=== PATIENT | female | born 1940 | race Caucasian/White ===

== ENCOUNTER 2017-12-01 11:34 | Observation (INO) ==
--- NOTE | 2017-12-01 11:53 | Emergency Department Note ---
Disposition Clinical Impression: TIA (transient ischemic attack) Qualifiers: Transient cerebral ischemia type: unspecified Qualified Code(s): G45.9 - Transient cerebral ischemic attack, unspecified Disposition: Admitted As Inpatient Condition: Fair Referrals: Andrade Ulrich MD [Primary Care Provider] - Forms: ED Satisfaction Letter, Work/School Release Time of Disposition: 14:45 Neuro HPI - General Chief Complaint: ED General Medical Stated Complaint: Low blood pressure Time Seen by Provider: 12/01/17 11:43 Source: patient, family, EMS Limitations: no limitations Nursing Notes Reviewed: Yes Vital Signs Reviewed: Yes - History of Present Illness HPI Narrative: 77-year-old female who states she had acute vision loss 3 days ago. The vision has improved some now is just blurry. Says she generally does not feel well. She complains of chronic bilateral leg pain due to neuropathy. She also complains of lower abdominal pain. Onset of Symptoms Date: 11/28/17 Onset of Symptoms Time: 08:00 Symptom Onset Unknown: No Timing confirmed by: spouse Location: other (Vision) History of same: No Severity: severe Quality: other (Acute bilateral vision loss) Symptoms Improving: Yes Improves with: time Context: sudden onset On Anticoagulants: No Associated symptoms: Reports: malaise Treatments Prior to Arrival: none - Related Data Home Medications: Home Medications Medication Instructions Recorded Confirmed Albuterol Sulfate [Proair 1 puff IH Q6H PRN 09/26/15 11/12/17 Respiclick] Aspirin [Adult Low Dose Aspirin EC] 81 mg PO HS 09/26/15 11/12/17 Bisacodyl [Dulcolax] 10 mg RC DAILY PRN 09/26/15 11/12/17 Carvedilol 3.125 mg PO Q12H 09/26/15 11/12/17 Donepezil [Aricept] 5 mg PO HS 09/26/15 11/12/17 Gabapentin [Neurontin] 300 mg PO Q8H 09/26/15 11/12/17 Levothyroxine [Synthroid] 175 mcg PO 0600 09/26/15 11/12/17 Lisinopril 2.5 mg PO QAM 09/26/15 11/12/17 Polyethylene Glycol 3350 [MiraLAX] 17 gm PO HS 09/26/15 11/12/17 Sennosides [Senna] 8.6 mg PO BID PRN 09/26/15 11/12/17 rOPINIRole [Requip] 1 mg PO HS 09/26/15 11/12/17 GuaiFENesin/Dextromethorphan 10 ml PO Q4H PRN 04/21/16 11/12/17 [Robitussin/Dm] Ondansetron HCl [Zofran] 4 mg PO Q4H PRN 04/21/16 11/12/17 Carbidopa/Levodopa [Carbidopa-Levo 1 each PO Q12H 06/02/16 11/12/17 ER 25-100 Tab] Cyanocobalamin (Vitamin B-12) 1,000 mcg PO DAILY 06/02/16 11/12/17 [Vitamin B12] Docusate [Colace] 100 mg PO BID 06/02/16 11/12/17 Ipratropium/Albuterol Neb [Duoneb] 3 ml IH Q4H PRN 06/02/16 11/12/17 Oxygen 3 l NS AD 06/02/16 11/12/17 Acetaminophen [Tylenol] 500 mg PO Q6HR PRN 11/12/17 11/12/17 Albuterol Neb [Proventil Neb] 2.5 mg IH Q4HR 11/12/17 11/12/17 Budesonide/Formoterol 160/4.5 1 puff IH BIDR 11/12/17 11/12/17 [Symbicort 160/4.5] Buspirone HCl [Buspar] 10 mg PO BID 11/12/17 11/12/17 Lubiprostone [Amitiza] 24 mcg PO DAILY 11/12/17 11/12/17 MOM Conc [Milk of Magnesia Conc] 30 ml PO DAILY PRN 11/12/17 11/12/17 Melatonin/Pyridoxine HCl (B6) 1 tab PO HS PRN 11/12/17 11/12/17 [Melatonin 5 mg Tablet] Nitroglycerin [Nitrostat] 0.4 mg SL Q5M PRN 11/12/17 11/12/17 OxyCODONE Immed Rel [Roxicodone 10 10 mg PO QID PRN 11/12/17 11/12/17 MG] Promethazine HCl 12.5 mg PO Q6H PRN 11/12/17 11/12/17 Previous Rx's Medication Instructions Recorded Cholecalciferol (D-3) [Vitamin D] 1,000 unit PO QAM tablet 04/24/16 Ferrous Sulfate 325 mg PO TIDWM tablet 04/24/16 Folic Acid 1 mg PO DAILY tablet 04/24/16 ALPRAZolam [Xanax 0.5 MG Tablet] 0.5 mg PO BID #20 tablet 06/02/16 Allergies/Adverse Reactions: Allergies Allergy/AdvReac Type Severity Reaction Status Date / Time Erythromycin Base Allergy Unknown See Verified 04/21/16 14:16 Comments morphine Allergy Unknown See Verified 04/21/16 14:16 Comments Sulfa (Sulfonamide AdvReac Unknown Nausea Verified 04/21/16 14:16 Antibiotics) All systems ED: reviewed and negative except as stated. Constitutional: Denies: fever, chills, weakness, weight change Eyes: Reports: vision change (Acute vision loss 3 days ago). Denies: eye pain, eye discharge ENT ED: Denies: ear pain, throat pain, dental pain, hearing loss, epistaxis, congestion, dysphagia Cardiovascular: Denies: chest pain, palpitations, dyspnea on exertion, edema, syncope Respiratory: Denies: cough, dyspnea, wheezes, hemoptysis, stridor Gastrointestinal: Reports: abdominal pain. Denies: nausea, vomiting, diarrhea, constipation, hematemesis, melena, hematochezia Genitourinary: Denies: dysuria, frequency, hematuria, discharge Musculoskeletal: Reports: myalgia. Denies: back pain, neck pain, arthralgia Integumentary: Denies: rash, abrasion, lesions Neurological: Denies: headache, weakness, numbness, paresthesias, confusion, abnormal gait, vertigo Psychiatric: Denies: anxiety, depression, suicidal thoughts, homicidal thoughts , auditory hallucinations, visual hallucinations Endocrine: Denies: fatigue Hematological/Lymphatic: Denies: easy bleeding, easy bruising Allergic/Immunologic: Denies: facial swelling, urticaria Past Medical History - Past Medical History Medical history: Reports: arthritis, atrial fibrillation, CHF, COPD, CVA, DVT, dementia, GERD, hypertension, pulmonary embolus, thyroid disease, TIA, other Surgical history: Reports: appendectomy, cholecystectomy, colectomy, hysterectomy, knee replacement, orthopedic, other Psychiatric history: Reports: anxiety, depression [employer] history: Reports: no [employer] history - Social History Smoking Status: Unknown if ever smoked Smokeless Tobacco Status: No Alcohol use: Reports: none Drug use: Reports: none Physical Exam - General Limitations: no limitations General appearance: alert, in no apparent distress - Head Head exam: atraumatic, normocephalic, normal inspection - Eye Eye exam: Present: PERRL, EOMI - ENT ENT exam: normal exam, normal oropharynx, mucous membranes moist - Neck Neck exam: Present: normal inspection, full ROM, trachea midline - Chest Chest inspection: Present: normal inspection, symmetric chest wall rise - Respiratory Respiratory exam: Present: normal lung sounds bilaterally - Cardiovascular Cardiovascular exam: Present: regular rate, normal rhythm, normal heart sounds - Abdominal Exam Abdominal exam: Present: soft, tenderness. Absent: guarding, rebound Abdominal tenderness: Present: diffuse - Extremities Exam Extremities exam: Present: normal inspection, full ROM. Absent: tenderness, pedal edema - Expanded Lower Extremity Exam Neurovascular/Tendon exam: Absent: motor deficit, sensory deficit, tendon deficit Gait: not tested/not observed - Back Exam Back exam: Present: normal inspection, full ROM. Absent: tenderness - Neurological Exam Neurological exam: Present: alert. Absent: motor sensory deficit - Psychiatric Psychiatric exam: Present: normal affect, normal mood - Skin Skin exam: Present: warm, dry, intact, normal color Course - Reevaluation(s) Reevaluation #1: 77-year-old with acute vision loss 3 days ago which seems to have improved. She continues to have some blurred vision however. Does not seem to have a lopez field defect on confrontational ward. She did not will be admitted and further evaluation obtained. Time: 14:21 - Consultations Consultation #1: Discussed with , he requests CTA of the head and neck, admittable see in consult. Time: 14:20 Consultation #2: Discussed with , admit. Time: 14:45 Vital Signs Temperature 97.8 F 12/01/17 11:37 Pulse Rate 114 12/01/17 11:37 Respiratory Rate 18 12/01/17 11:37 Blood Pressure 98/62 12/01/17 11:37 O2 Sat by Pulse Oximetry 100 12/01/17 11:37 Temperature 97.8 F 12/01/17 11:37 Pulse Rate 60 12/01/17 13:21 Respiratory Rate 13 12/01/17 13:21 Blood Pressure 97/49 12/01/17 13:21 O2 Sat by Pulse Oximetry 98 12/01/17 13:21 Oxygen Delivery Oxygen Delivery Nasal Cannula Neuro Symptoms/Deficit - Lab Data Result diagrams: 12/01/17 12:22 12/01/17 12:22 Lab Results 12/01/17 12/01/17 12/01/17 Range/Units 12:22 12:22 12:22 WBC 5.1 (4.3-11.1) K/mcL RBC 4.54 (3.82-4.97) M/mcL Hgb 13.1 (11.5-15.4) g/dL Hct 42.2 (35.3-44.9) % MCV 93.0 (83.0-100.0) fL MCH 28.9 (28.0-33.3) pg MCHC 31.0 L (31.6-35.5) g/dL RDW 13.5 (11.5-14.5) % Plt Count 166 (140-400) K/mcL MPV 11.1 (9.4-12.4) fL Immature Gran % 0.0 (0-4) % Seg Neutrophils % 45.9 % Lymphocytes % 42.8 % Monocytes % 6.8 % Eosinophils % 3.7 % Basophils % 0.8 % Neutrophils # 2.4 (1.6-8.9) K/mcL Lymphocytes # 2.2 (0.6-4.6) K/mcL Monocytes # 0.4 (0.0-1.3) K/mcL Eosinophils # 0.2 (0.0-0.6) K/mcL Basophils # 0.0 (0.0-0.2) K/mcL PT 11.0 (9.4-12.1) Seconds INR 1.0 APTT 31.8 (26.0-36.0) Seconds Sodium 143 (136-145) mEq/L Potassium 4.0 (3.5-5.1) mEq/L Chloride 106 (98-107) mEq/L Carbon Dioxide 32 H (23-29) mEq/L BUN 14 (8-23) mg/dL Creatinine 0.55 L (0.60-1.20) mg/dL Est GFR ( Amer) > 60 (> 60) Est GFR (Non-Af Amer) > 60 (> 60) BUN/Creatinine Ratio 25 (6-26) Glucose 73 (70-105) mg/dL Calculated Osmolality 295 (280-300) Lactic Acid (0.5-2.2) mmol/L Calcium 9.6 (8.6-10.3) mg/dL Troponin I < 0.03 (< 0.04) ng/mL Urine Color (Yellow) Urine Clarity (Clear) Urine pH (5.0-8.0) pH Units Ur Specific [place] (1.010-1.025) Urine Protein (Neg-Trace) mg/dL Urine Glucose (UA) (Normal) mg/dL Urine Ketones (Negative) mg/dL Urine Blood (Negative) Urine Nitrite (Negative) Urine Bilirubin (Negative) Urine Urobilinogen (Normal) mg/dL Ur Leukocyte Esterase (Negative) Urine Microscopic RBC (0-3) per hpf Urine Microscopic WBC (0-3) per hpf Ur Squamous Epith Cells (None-Few) per lpf Urine Bacteria (None-Few) per hpf Ur Culture Indicated? (NO) 12/01/17 12/01/17 Range/Units 12:22 13:15 WBC (4.3-11.1) K/mcL RBC (3.82-4.97) M/mcL Hgb (11.5-15.4) g/dL Hct (35.3-44.9) % MCV (83.0-100.0) fL MCH (28.0-33.3) pg MCHC (31.6-35.5) g/dL RDW (11.5-14.5) % Plt Count (140-400) K/mcL MPV (9.4-12.4) fL Immature Gran % (0-4) % Seg Neutrophils % % Lymphocytes % % Monocytes % % Eosinophils % % Basophils % % Neutrophils # (1.6-8.9) K/mcL Lymphocytes # (0.6-4.6) K/mcL Monocytes # (0.0-1.3) K/mcL Eosinophils # (0.0-0.6) K/mcL Basophils # (0.0-0.2) K/mcL PT (9.4-12.1) Seconds INR APTT (26.0-36.0) Seconds Sodium (136-145) mEq/L Potassium (3.5-5.1) mEq/L Chloride (98-107) mEq/L Carbon Dioxide (23-29) mEq/L BUN (8-23) mg/dL Creatinine (0.60-1.20) mg/dL Est GFR ( Amer) (> 60) Est GFR (Non-Af Amer) (> 60) BUN/Creatinine Ratio (6-26) Glucose (70-105) mg/dL Calculated Osmolality (280-300) Lactic Acid 0.9 (0.5-2.2) mmol/L Calcium (8.6-10.3) mg/dL Troponin I (< 0.04) ng/mL Urine Color Yellow (Yellow) Urine Clarity Cloudy A (Clear) Urine pH 5.5 (5.0-8.0) pH Units Ur Specific [place] 1.029 H (1.010-1.025) Urine Protein Trace (Neg-Trace) mg/dL Urine Glucose (UA) Normal (Normal) mg/dL Urine Ketones Negative (Negative) mg/dL Urine Blood Negative (Negative) Urine Nitrite Negative (Negative) Urine Bilirubin Negative (Negative) Urine Urobilinogen Normal (Normal) mg/dL Ur Leukocyte Esterase Moderate H (Negative) Urine Microscopic RBC 0-3 (0-3) per hpf Urine Microscopic WBC TNTC H (0-3) per hpf Ur Squamous Epith Cells Many H (None-Few) per lpf Urine Bacteria Many H (None-Few) per hpf Ur Culture Indicated? NO. (NO) NIH Stroke Scale - Level of Consciousness LOC: Alert - LOC Questions LOC Questions: Answers both correctly - LOC Commands LOC Commands: Performs both correctly - Best Gaze Best Gaze: Normal - Facial Palsy Facial Palsy: Normal - Motor Arms Motor Arm-Left: No drift for 10 seconds Motor Arm-Right: No drift for 10 seconds - Motor Legs Motor Leg-Left: No drift for 5 seconds Motor Leg-Right: No drift for 5 seconds - Limb Ataxia Limb Ataxia: Normal, No Ataxia - Sensory Sensory: Normal - Best Language Best Language: No aphasia - Extinction and Inattention Extinction and Inattention: Normal TPA Checklist - Eligibilty for IV tPA 1. LKW equal to or less than 4.5 hours be before treatment: No - LKW: 3-4.5 hrs Add. Warnings/Precautions Patient/family understanding: The patient/family members have been counseled and understood the risk, benefit , and alternatives of treatment.
[2017-12-01 12:34] LABS: Basophils % 0.8 %; Eosinophils # 0.2 K/mcL (0.0-0.6); Eosinophils % 3.7 %; Hematocrit 42.2 % (35.3-44.9); Hemoglobin 13.1 g/dL (11.5-15.4); Lymphocytes # 2.2 K/mcL (0.6-4.6); Lymphocytes % 42.8 %; Mean Corpuscular Hemoglobin 28.9 pg (28.0-33.3); Mean Platelet Volume 11.1 fL (9.4-12.4); Monocytes # 0.4 K/mcL (0.0-1.3); Monocytes % 6.8 %; Neutrophils # 2.4 K/mcL (1.6-8.9); Platelet Count 166 K/mcL (140-400); Red Blood Count 4.54 M/mcL (3.82-4.97); Red Cell Distribution Width 13.5 % (11.5-14.5); Segmented Neutrophils % 45.9 %
[2017-12-01 12:53] LABS: Activated Partial Thrombo Time 31.8 Seconds (26.0-36.0)
[2017-12-01 13:00] LABS: BUN/Creatinine Ratio 25 (6-26); Blood Urea Nitrogen 14 mg/dL (8-23); Calcium 9.6 mg/dL (8.6-10.3); Carbon Dioxide 32 mEq/L (23-29); Chloride 106 mEq/L (98-107); Glucose 73 mg/dL (70-105); Osmolality,Calculated 295 (280-300); Sodium 143 mEq/L (136-145); Troponin I < 0.03 ng/mL (< 0.04); eGFR For African Americans > 60 (> 60); eGFR For Non-African Americans > 60 (> 60)
[2017-12-01 13:23] LABS: Bilirubin,Urine Negative (Negative); Blood,Urine Negative (Negative); Clarity,Urine Cloudy (Clear); Color,Urine Yellow (Yellow); Glucose,Urine (UA) Normal (Normal); Ketones,Urine Negative (Negative); Leukocyte Esterase,Urine Moderate (Negative); Nitrite,Urine Negative (Negative); PH,Urine 5.5 pH Units (5.0-8.0); Protein,Urine Trace mg/dL (Neg-Trace); Specific Gravity,Urine 1.029 (1.010-1.025); Urobilinogen,Urine Normal (Normal)
[2017-12-01 13:25] LABS: Bacteria,Urine Many per hpf (None-Few); Squamous Epithelial Cell,Urine Many per lpf (None-Few); WBC,Urine TNTC per hpf (0-3)
[2017-12-01 13:35] LABS: RBC,Urine 0-3 per hpf (0-3)
[2017-12-01] MEDS ORDERED: Isovue-370 500 ML INFUS..BTL IV ONE (14:18)
[2017-12-01] MEDS ORDERED: *HR* Dextrose 50 % in Water (Syg) 50 ML SYRINGE IVP PRN (16:47)
[2017-12-01] MEDS ORDERED: D5% in Water 1,000 ML IVC PRN (16:47)
[2017-12-01] MEDS ORDERED: Dextrose Gel 15 GM/37.5 ML TUBE PO PRN ×2 (16:47)
[2017-12-01] MEDS: Insulin LISPRO 300 UNITS/3 ML VIAL SQ SCH (19:46)
[2017-12-01] MEDS ORDERED: Nitroglycerin 0.4 MG TAB.SUBL SL PRN (20:45)
[2017-12-01] MEDS ORDERED: NON-FORMULARY MEDICATION 1 EACH EACH (Oxygen [Oxygen] 3 L) NS SCH (20:45)
[2017-12-01] MEDS ORDERED: Ondansetron ODT 4 MG TAB.RAPDIS PO PRN (20:45)
[2017-12-01] MEDS ORDERED: PYRIDOXINE HCL PO PRN (20:45)
[2017-12-01] MEDS ORDERED: MELATONIN PO PRN (20:45)
[2017-12-01] MEDS ORDERED: MOM Conc 10 ML UD.LIQ PO PRN (20:45)
[2017-12-01] MEDS ORDERED: Bisacodyl 10 MG RECTAL SUPPOSITORY RC PRN (20:45)
[2017-12-01] MEDS ORDERED: Sennosides 8.6 MG TABLET PO PRN (20:45)
[2017-12-01] MEDS ORDERED: Naloxone 0.4 MG/ML INJ IVP PRN (20:50)
[2017-12-01] MEDS ORDERED: Aspirin Enteric Coated 81 MG Tablet PO SCH (21:00)
--- NOTE | 2017-12-01 23:17 | Internal Med History&Physical ---
Date of Encounter: 12/01/17 Time of Encounter: 23:07 Internal Medicine - H&P: HPI Chief complaint: Blurry vision Admitted From: Long-term Nursing Facility Plans for Post Hospital Care: Transfer Shelter Facility History of present illness: Ms. Gibbons is a 77 year old female Patient is a long-term resident of half-way facility, with past medical history of Parkinson's disease, chronic speech disturbances, hypothyroidism, hyperlipidemia, dysphagia oral phase, obesity, dementia. In addition the EMR, she has medical history of atrial fibrillation and hypertension. The patient seems to have chronic right-sided hemiplegia secondary to prior CVA. She also has dysarthria, therefore history is difficult to obtain. She does report she was brought in from the SNF de to worsening vision. She reports this has been going on for a week. She is mostly bed bound and has chronic dysphagia In the ER, she was worked up for CVA< neurologist consulted who requested a head and NEck CTA which was unremarkable, she was admitted for suspected TIA. The patient denies chest pain, difficulty breathing and new difficulty swallowing, she denies nausea, vomiting or diarrhea, she has no abdominal pain. Workup in the ER was unremarkable past half-way facility paperwork, patient is full code. Last hospitalization was in 2016, there is no comparison for neurologic examination findings which are as documented in the examination section. Past Med Surg Social Fam HX - Past Medical History Medical history: arthritis, atrial fibrillation, CHF, COPD, CVA, DVT, dementia, GERD, hypertension, pulmonary embolus, thyroid disease, TIA, other Psychiatric history: anxiety, depression - Past Surgical History Surgical History: appendectomy, cholecystectomy, colectomy, hysterectomy, knee replacement, orthopedic, other - Social History Smoking Status: Unknown if ever smoked Smokeless Tobacco Status: No Alcohol use: none Drug use: none - Family History Father Living Status: Hx Family Respiratory Disorders: Yes Hx Family Cancer: Yes (Lung CA) Internal Medicine - H&P: Meds Albuterol Sulfate [Proair Respiclick] 1 puff IH Q6H PRN 09/26/15 [History] Aspirin [Adult Low Dose Aspirin EC] 81 mg PO HS 09/26/15 [History] Bisacodyl [Dulcolax] 10 mg RC DAILY PRN 09/26/15 [History] Carvedilol 3.125 mg PO Q12H 09/26/15 [History] Donepezil [Aricept] 5 mg PO HS 09/26/15 [History] Levothyroxine [Synthroid] 175 mcg PO 0600 09/26/15 [History] Lisinopril 2.5 mg PO QAM 09/26/15 [History] Polyethylene Glycol 3350 [MiraLAX] 17 gm PO HS 09/26/15 [History] Sennosides [Senna] 8.6 mg PO BID PRN 09/26/15 [History] rOPINIRole [Requip] 1 mg PO HS 09/26/15 [History] GuaiFENesin/Dextromethorphan [Robitussin/Dm] 10 ml PO Q4H PRN 04/21/16 [History] Ondansetron HCl [Zofran] 4 mg PO Q4H PRN 04/21/16 [History] Cholecalciferol (D-3) [Vitamin D] 1,000 unit PO QAM tablet 04/24/16 [Rx] Ferrous Sulfate 325 mg PO TIDWM tablet 04/24/16 [Rx] Folic Acid 1 mg PO DAILY tablet 04/24/16 [Rx] ALPRAZolam [Xanax 0.5 MG Tablet] 0.5 mg PO BID #20 tablet 06/02/16 [Rx] Carbidopa/Levodopa [Carbidopa-Levo ER 25-100 Tab] 1 each PO Q12H 06/02/16 [ History] Cyanocobalamin (Vitamin B-12) [Vitamin B12] 1,000 mcg PO DAILY 06/02/16 [History ] Docusate [Colace] 100 mg PO BID 06/02/16 [History] Ipratropium/Albuterol Neb [Duoneb] 3 ml IH Q4H PRN 06/02/16 [History] Oxygen 3 l NS AD 06/02/16 [History] Acetaminophen [Tylenol] 500 mg PO Q6HR PRN 11/12/17 [History] Albuterol Neb [Proventil Neb] 2.5 mg IH Q4HR 11/12/17 [History] Budesonide/Formoterol 160/4.5 [Symbicort 160/4.5] 1 puff IH BIDR 11/12/17 [ History] Buspirone HCl [Buspar] 10 mg PO BID 11/12/17 [History] MOM Conc [Milk of Magnesia Conc] 30 ml PO DAILY PRN 11/12/17 [History] Melatonin/Pyridoxine HCl (B6) [Melatonin 5 mg Tablet] 1 tab PO HS PRN 11/12/17 [ History] Nitroglycerin [Nitrostat] 0.4 mg SL Q5M PRN 11/12/17 [History] OxyCODONE Immed Rel [Roxicodone 10 MG] 10 mg PO QID PRN 11/12/17 [History] Promethazine HCl 12.5 mg PO Q6H PRN 11/12/17 [History] Gabapentin [Neurontin] 800 mg PO TID 12/01/17 [History] Linaclotide [Linzess] 290 mcg PO DAILY 12/01/17 [History] Mirtazapine [Remeron] 15 mg PO HS 12/01/17 [History] Omeprazole [PriLOSEC] 40 mg PO DAILY 12/01/17 [History] 3 Allergy/AdvReac Type Severity Reaction Status Date / Time Erythromycin Base Allergy Unknown See Verified 04/21/16 14:16 Comments morphine Allergy Unknown See Verified 04/21/16 14:16 Comments Sulfa (Sulfonamide AdvReac Unknown Nausea Verified 04/21/16 14:16 Antibiotics) All Systems PM: A 10-system review of systems was performed and is negative for pertinent findings except as documented above in the HPI. - Constitutional Constitutional: as per HPI - EENT Eyes: as per HPI Ears: as per HPI Nose, mouth and throat: as per HPI - Cardiovascular Cardiovascular ROS IM: as per HPI - Respiratory Respiratory: as per HPI - Gastrointestinal Gastrointestinal: as per HPI - Genitourinary Genitourinary: as per HPI - Musculoskeletal Musculoskeletal ROS IM: as per HPI - Integumentary Integumentary IM: as per HPI - Neurological Neurological ROS: as per HPI - Hematologic/Lymphatic Hematologic/Lymphatic: as per HPI - Constitutional Vitals: Temp Pulse Resp BP Pulse Ox 97.5 F L 73 17 121/54 98 12/01/17 20:46 12/01/17 20:46 12/01/17 20:46 12/01/17 20:46 12/01/17 20:46 General appearance: Present: A&O X 3, pleasant, no acute distress, obese - Head Head exam: Present: atraumatic, normocephalic - Eye Eye exam: Present: PERRL, conjuntiva pink, sclera anicteric Pupils: Present: PERRL - Neck Neck exam general surgery: Present: supple, trachea midline. Absent: lymphadenopathy - Respiratory Respiratory exam: Present: CTAB. Absent: accessory muscle use, rales, rhonchi, wheezes - Cardiovascular Cardiovascular exam: Present: RRR, +S1, +S2. Absent: diastolic murmur, gallop, rubs, systolic murmur - GI/Abdominal GI/Abdominal exam: Present: normal bowel sounds, soft, no peritoneal signs. Absent: distended, tenderness - Extremities Exam Extremities exam: Present: warm, radial pulses palpable and symmetrical. Absent : calf tenderness, cyanotic, pedal edema - Neurological Exam Additional comments: Alert, awake, oriented 3. Patient with right sided facial droop. Patient is dysarthric. Pupils are equal and reactive bilaterally. Visual ward not tested due to patient's dysarthria. Upper extremities power at least. 3/5 bilaterally. Right lower extremity positive. Left lower extremity power at least 2/5, against gravity NO sensory deficits - Skin Skin exam: Present: dry, intact Internal Med - H&P Results - Labs CBC & Chem 7: 12/01/17 12:22 12/01/17 12:22 - Assessment and plan (1) Blurry vision Current Visit: Yes Status: Acute Assessment and plan: Patient complains of blurry vision that dates back to week prior to presentation. Described as visual field defects Unable to assess visual field on exam due to severe dysarthia Unlikely TIA HEad CT and Head and Neck CTA negative for acute infarct Obtain ECHO neuro eval already requested by ER Continue home meds Consider ophthalmology eval a.m-consult to be called by day team if cleared by neuro fall precautions (2) History of CVA with residual deficit Current Visit: Yes Status: Chronic Assessment and plan: Patient with residual dysarthria, paraparesis, suspect R facial droop too is chronic Patient is mostly bed bound at her SNF Fall precautions Speech therapy prior to feeding as patient failed swallow eval in ER, however, notes from SNF states -"oral phase dysphagia" as one of her diagnoses, keep NPO for now Continue home meds Fall precautions DVT prophylaxis (3) Chronic respiratory failure with hypoxia Current Visit: Yes Status: Chronic Assessment and plan: continue home O2 (4) HTN (hypertension) Current Visit: Yes Status: Chronic Assessment and plan: controlled, continue home meds Qualifiers: Hypertension type: essential hypertension Qualified Code(s): I10 - Essential (primary) hypertension (5) DVT prophylaxis Current Visit: No Status: Acute (6) Chronic a-fib Current Visit: Yes Status: Chronic Assessment and plan: not on anticoagulation, reason unknown, continue home meds (7) Dementia Current Visit: No Status: Chronic Qualifiers: Dementia type: Parkinson's disease Dementia behavioral disturbance: with behavioral disturbance Qualified Code(s): G20 - Parkinson's disease; F02.81 - Dementia in other diseases classified elsewhere with behavioral disturbance (8) [facility] resident Current Visit: Yes Status: Chronic Assessment and plan: SW eval for return to SNF (9) Obesity (BMI 30-39.9) Current Visit: Yes Status: Chronic Assessment and plan: chronic, stable (10) Parkinson disease Current Visit: Yes Status: Chronic Assessment and plan: chronic, stable - Time Spent With Patient Total time spent is greater than 50% in coordination of care (as documented) at patient's floor/unit and/or counseling patient:
[2017-12-01] MEDS: Albuterol 2.5 MG/3 ML NEBULIZER IH SCH (23:19)
[2017-12-01] MEDS: Budesonide/Formoterol 160/4.5 MDI IH SCH (23:19)
[2017-12-02] MEDS ORDERED: Ipratropium/Albuterol Neb 3 ML IH PRN
[2017-12-02] MEDS: Carbidopa/Levodopa ER 50/200 TABLET PO SCH ×2 (00:45→09:47)
[2017-12-02] MEDS: Gabapentin 400 MG CAPSULE PO SCH ×4 (00:46→23:11)
[2017-12-02] MEDS: ALPRAZolam 0.5 MG TABLET PO SCH ×3 (00:46→23:11)
[2017-12-02] MEDS: Mirtazapine 15 MG TABLET PO SCH ×2 (00:46→23:11)
[2017-12-02] MEDS: rOPINIRole 1 MG TABLET PO SCH ×2 (00:46→23:11)
[2017-12-02] MEDS: Insulin LISPRO 300 UNITS/3 ML VIAL SQ SCH ×5 (00:46→23:10)
[2017-12-02] MEDS: Albuterol 2.5 MG/3 ML NEBULIZER IH SCH ×3 (03:14→11:21)
[2017-12-02] MEDS: *HR* Enoxaparin 40 MG/0.4 ML SYRINGE SQ SCH (06:29)
[2017-12-02] MEDS: Budesonide/Formoterol 160/4.5 MDI IH SCH ×2 (07:37→21:58)
[2017-12-02] MEDS ORDERED: (Linaclotide [Linzess] 290 MCG) PO SCH (09:00)
[2017-12-02] MEDS: Cholecalciferol (D-3) 1,000 UNIT TABLET PO SCH (09:46)
[2017-12-02] MEDS: Folic Acid 1 MG TABLET PO SCH (09:46)
[2017-12-02] MEDS: Cyanocobalamin (B-12) 1,000 MCG TABLET PO SCH (09:47)
[2017-12-02] MEDS: *HR* OxyCODONE Immed Rel 5 MG TABLET PO PRN ×2 (09:52→17:21)
[2017-12-02] MEDS ORDERED: Melatonin 3 MG TABLET PO PRN (10:40)
--- NOTE | 2017-12-02 10:53 | Internal Med Progress Note ---
Date of Encounter: 12/05/17 Time of Encounter: 09:00 - Assessment and plan (1) Dehydration Status: Acute Assessment and plan: Patient with diminished oral intake. No GI complaints. ? If this is related to failure to thrive. Swallow evaluation is complete and recommendations in chart. We will continue to encourage oral intake. (2) UTI (urinary tract infection) Status: Acute Assessment and plan: Date number-one IV Rocephin. Will DC Dey which was placed in the emergency department. Await culture data and monitor. Previous cultures show pansensitive Escherichia coli in September 2016, pansensitive staph aureus in May 2016, Proteus in November 2015 sensitive to ceftriaxone but resistant to fluoroquinolone (3) Chronic a-fib Status: Chronic Assessment and plan: not on anticoagulation, reason unknown, continue asa 81 MG PO DAILY Rate controlled (4) Parkinson disease Status: Chronic Assessment and plan: chronic, stable On sinemet Dysphagia - Swallow eval done with reccs in chart (5) Dementia Status: Chronic Qualifiers: Dementia type: Parkinson's disease Dementia behavioral disturbance: with behavioral disturbance Qualified Code(s): G20 - Parkinson's disease; F02.81 - Dementia in other diseases classified elsewhere with behavioral disturbance (6) alf resident Status: Chronic (7) DVT prophylaxis Status: Acute (8) Obesity (BMI 30-39.9) Status: Chronic Assessment and plan: chronic, stable (9) Chronic respiratory failure with hypoxia Status: Chronic Assessment and plan: continue home O2 (10) HTN (hypertension) Status: Chronic Assessment and plan: controlled, continue home meds Qualifiers: Hypertension type: essential hypertension Qualified Code(s): I10 - Essential (primary) hypertension (11) Blurry vision Status: Acute Assessment and plan: Patient complains of blurry vision that dates back to week prior to presentation. Described as visual field defects Unable to assess visual field on exam due to severe dysarthia Unlikely TIA HEad CT and Head and Neck CTA negative for acute infarct Obtain ECHO neuro eval already requested by ER Continue home meds Consider ophthalmology eval a.m-consult to be called by day team if cleared by neuro fall precautions 12/12: Resolved. She marked if this could be related to dehydration and UTI. We will await further neurology input. (12) History of CVA with residual deficit Status: Chronic Assessment and plan: Patient with residual dysarthria, paraparesis, suspect R facial droop too is chronic Patient is mostly bed bound at her SNF Fall precautions Speech therapy prior to feeding as patient failed swallow eval in ER, however, notes from SNF states -"oral phase dysphagia" as one of her diagnoses, keep NPO for now Continue home meds Fall precautions DVT prophylaxis - Time Spent With Patient Total time spent is greater than 50% in coordination of care (as documented) at patient's floor/unit and/or counseling patient: - Subjective Interval history: CC: Weakness HPI: Ms. Gibbons is a 77 year old female Patient is a long-term resident of longterm facility, with past medical history of Parkinson's disease, chronic speech disturbances, hypothyroidism, hyperlipidemia, dysphagia oral phase, obesity, dementia. In addition the EMR, she has medical history of atrial fibrillation and hypertension. The patient seems to have chronic right-sided hemiplegia secondary to prior CVA. She also has dysarthria, therefore history is difficult to obtain. She does report she was brought in from the SNF de to worsening vision. She reports this has been going on for a week. She is mostly bed bound and has chronic dysphagia In the ER, she was worked up for CVA< neurologist consulted who requested a head and NEck CTA which was unremarkable, she was admitted for suspected TIA. The patient denies chest pain, difficulty breathing and new difficulty swallowing, she denies nausea, vomiting or diarrhea, she has no abdominal pain. Workup in the ER was unremarkable past longterm facility paperwork, patient is full code. Last hospitalization was in 2016, there is no comparison for neurologic examination findings which are as documented in the examination section. 12/02: Patient states her visual plates have improved. She does state she has some difficulty and pain with urination. She did have a Dey catheter placed in the emergency room yesterday. Symptoms present at bedside and states that patient looks better, but is not quite "herself"yet and is acting as she does when she has a urinary tract infection. She does have a history of frequent urinary tract infections. Her urinalysis in the emergency room came back with too numerous to count white blood cells and many bacteria. Patient reports she has not been eating or drinking well and her concurs. She does appear little dehydrated. Patient currently denies any chest pain or shortness of breath. No nausea, vomiting, diarrhea. No fevers or chills. She does have some suprapubic tenderness. - Constitutional Vitals: Temp Pulse Resp BP Pulse Ox 98.4 F 79 17 113/53 98 12/02/17 07:41 12/02/17 07:41 12/02/17 07:41 12/02/17 07:41 12/02/17 07:41 General appearance: Present: A&O X 2, pleasant, no acute distress, obese - Head Head exam: Present: atraumatic, normocephalic - Eye Eye exam: Present: PERRL, conjuntiva pink, sclera anicteric Pupils: Present: PERRL - ENT ENT exam: Present: mucous membranes dry - Neck Neck exam general surgery: Present: supple, trachea midline. Absent: lymphadenopathy - Respiratory Respiratory exam: Present: decreased breath sounds. Absent: accessory muscle use, rales, rhonchi, wheezes - Cardiovascular Cardiovascular exam: Present: irregular rhythm, +S1, +S2. Absent: diastolic murmur, gallop, rubs, systolic murmur - GI/Abdominal GI/Abdominal exam: Present: normal bowel sounds, soft, no peritoneal signs. Absent: distended, tenderness Additional comments: Suprapubic ttp - Extremities Exam Extremities exam: Present: warm, radial pulses palpable and symmetrical. Absent : calf tenderness, cyanotic, pedal edema - Neurological Exam Additional comments: Right-sided weakness, right leg much greater than right arm. Right foot drop. Cranial nerves II through XII grossly intact. - Skin Skin exam: Present: dry (dimin turgor) Internal Medicine: Result - Labs CBC & Chem 7: 12/03/17 04:33 12/04/17 04:59 - ABG Interpretation ABG results: PT/INR, D-dimer PT 11.0 Seconds (9.4-12.1) 12/01/17 12:22 Consult Discharge Plan - Plan Instructions: Cephalexin (By mouth), Glucagon (Injection), Urinary Tract Infection in Women (DC) Additional Instructions: accuchecks ACHS for blood sugar monitoring Referrals: Andrade Ulrich MD [Primary Care Provider] - Prescriptions: cephALEXin [Keflex] 500 mg PO BID #10 capsule Glucagon HCl 1 mg IJ PRN PRN #5 vial PRN Reason: Blood glucose < 70 OxyCODONE Immed Rel [Roxicodone 10 MG] 10 mg PO QID PRN 7 Days #9 tablet PRN Reason: Moderate Pain
[2017-12-02] MEDS: Ferrous Sulfate Oral Soln 300 MG/5 ML UDC PO SCH ×2 (12:31→17:21)
[2017-12-02] MEDS: cefTRIAXone 1,000 MG in Water for inj. (sterile) 20 ML 10 ML IVP SCH (12:31)
[2017-12-02] MEDS: D5% in 0.9% NACL 1,000 ML IVC SCH (14:55)
--- NOTE | 2017-12-02 15:22 | Neurology - Consult Note ---
Date of Encounter: 12/02/17 Time of Encounter: 07:00 Assessment and Plan (1) Parkinson disease Current Visit: Yes Status: Chronic As patient who has an history of for Parkinson as well as dementia senior living resident baseline she is not ambulatory also has a history of stroke in the back surgery with foot drop on the right admitted with blurred vision not much description available the history of atrial fibrillation certainly she is at risk for a stroke though at the moment no clinical sign and symptoms of a stroke. She did angiogram of head and neck has been negative. Though may do an MRI but did not think that it would change her management a Suggest to check for any underlying metabolic or infectious etiology particularly for any UTI that may be causing or contributing to her symptoms No evidence of any carotid stenosis of CT angiogram. Suggest to continue on the current medication for her Parkinson was seems to be advanced I speech and swallowing problem could be related to it. Other treatment is as per primary team (2) Chronic a-fib Current Visit: Yes Status: Chronic (3) retirement resident Current Visit: Yes Status: Chronic History of Present Illness HPI: Ms. Gibbons is a 77 year old female long[facility]term resident [facility], with past medical history of Parkinson's disease, speech disturbances , hypothyroidism, hyperlipidemia, dysphagia oral phase, obesity, dementia. ( baseline non ambulatory) brought in from the SNF de to worsening vision. She reports this has been going on for a week. She is mostly bed bound and has chronic dysphagia. In the ER, she was worked up for CVA, Head and NEck CTA which was unremarkable, she was admitted for suspected TIA. The patient denies chest pain, difficulty breathing , nausea, vomiting or diarrhea, she has no abdominal pain. Baseline patient has difficulty with his speech though able to communicate able to recognize the family members significant hypophonia also has a right foot drop history of back surgery in the past and also has a history of a stroke she has not been able to get up and walk by herself for several years Past Med Surg Social Fam HX - Past Medical History Medical history: arthritis, atrial fibrillation, CHF, COPD, CVA, DVT, dementia, GERD, hypertension, pulmonary embolus, thyroid disease, TIA, other Psychiatric history: anxiety, depression - Past Surgical History Surgical History: appendectomy, cholecystectomy, colectomy, hysterectomy, knee replacement, orthopedic, other - Social History Smoking Status: Unknown if ever smoked Smokeless Tobacco Status: No Alcohol use: none Drug use: none - Family History Father Living Status: Hx Family Respiratory Disorders: Yes Hx Family Cancer: Yes (Lung CA) Medications and Allergies Albuterol Sulfate [Proair Respiclick] 1 puff IH Q6H PRN 09/26/15 [History] Bisacodyl [Dulcolax] 10 mg RC DAILY PRN 09/26/15 [History] Carvedilol 3.125 mg PO Q12H 09/26/15 [History] Donepezil [Aricept] 5 mg PO HS 09/26/15 [History] Levothyroxine [Synthroid] 175 mcg PO 0600 09/26/15 [History] Lisinopril 2.5 mg PO QAM 09/26/15 [History] Polyethylene Glycol 3350 [MiraLAX] 17 gm PO HS 09/26/15 [History] Sennosides [Senna] 8.6 mg PO BID PRN 09/26/15 [History] rOPINIRole [Requip] 1 mg PO HS 09/26/15 [History] GuaiFENesin/Dextromethorphan [Robitussin/Dm] 10 ml PO Q4H PRN 04/21/16 [History] Ondansetron HCl [Zofran] 4 mg PO Q4H PRN 04/21/16 [History] Cholecalciferol (D-3) [Vitamin D] 1,000 unit PO QAM tablet 04/24/16 [Rx] Ferrous Sulfate 325 mg PO TIDWM tablet 04/24/16 [Rx] Folic Acid 1 mg PO DAILY tablet 04/24/16 [Rx] ALPRAZolam [Xanax 0.5 MG Tablet] 0.5 mg PO BID #20 tablet 06/02/16 [Rx] Cyanocobalamin (Vitamin B-12) [Vitamin B12] 1,000 mcg PO DAILY 06/02/16 [History ] Docusate [Colace] 100 mg PO BID 06/02/16 [History] Ipratropium/Albuterol Neb [Duoneb] 3 ml IH Q4H PRN 06/02/16 [History] Oxygen 3 l NS AD 06/02/16 [History] Acetaminophen [Tylenol] 500 mg PO Q6HR PRN 11/12/17 [History] Albuterol Neb [Proventil Neb] 2.5 mg IH Q4HR 11/12/17 [History] Budesonide/Formoterol 160/4.5 [Symbicort 160/4.5] 1 puff IH BIDR 11/12/17 [ History] Buspirone HCl [Buspar] 10 mg PO BID 11/12/17 [History] MOM Conc [Milk of Magnesia Conc] 30 ml PO DAILY PRN 11/12/17 [History] Melatonin/Pyridoxine HCl (B6) [Melatonin 5 mg Tablet] 1 tab PO HS PRN 11/12/17 [ History] Nitroglycerin [Nitrostat] 0.4 mg SL Q5M PRN 11/12/17 [History] OxyCODONE Immed Rel [Roxicodone 10 MG] 10 mg PO QID PRN 11/12/17 [History] Promethazine HCl 12.5 mg PO Q6H PRN 11/12/17 [History] Gabapentin [Neurontin] 800 mg PO TID 12/01/17 [History] Linaclotide [Linzess] 290 mcg PO DAILY 12/01/17 [History] Mirtazapine [Remeron] 15 mg PO HS 12/01/17 [History] Omeprazole [PriLOSEC] 40 mg PO DAILY 12/01/17 [History] Aspirin 81 mg PO DAILY 12/02/17 [History] Carbidopa/Levodopa [Carbidopa-Levodopa 25-100 Tab] 1 tab PO BID 12/02/17 [ History] 3 Allergy/AdvReac Type Severity Reaction Status Date / Time Erythromycin Base Allergy Unknown See Verified 04/21/16 14:16 Comments morphine Allergy Unknown See Verified 04/21/16 14:16 Comments Sulfa (Sulfonamide AdvReac Unknown Nausea Verified 04/21/16 14:16 Antibiotics) All Systems: The remainder of the systems were reviewed and are negative Physical Examination - Vital Signs Vital Signs: Initial Vital Signs Temp Pulse Resp BP Pulse Ox 97.8 F 114 18 98/62 100 12/01/17 11:37 12/01/17 11:37 12/01/17 11:37 12/01/17 11:37 12/01/17 11:37 - Constitutional General appearance: comfortable - Neurologic Sensorimotor examination: intact Motor examination - right side: 2/5: tibialis Anterior, quadriceps, toe extension (EHL), plantarflexion (right foot drop), 3/5: hip flexors, 4/5: deltoids, biceps, triceps, wrist flexion, wrist extension, child welfare manager Motor examination - left side: 3/5: hip flexors, child welfare manager, quadriceps, tibialis Anterior, toe extension (EHL), plantarflexion, 4/5: deltoids, biceps, triceps, wrist flexion, wrist extension Detailed sensory examination: intact, light touch, pain, temperature, vibration Reflex and gait examination: intact Reflexes: Biceps: 1+, Triceps: 1+, Brachioradialis: 1+, Patella: 0, Achilles: 0 Mental Status Examination: awake, alert, oriented to person, oriented to place, oriented to time, follows commands appropriately, answers questions appropriately, makes eye contact, follows simple commands, localizes noxious stimulation Cranial nerve examination: PERRL, EOMI, visual ward intact, no facial asymmetry is present (AAO, follows command able to count the fingers significant hypophonia but comprehension is intact. She is moving both upper extremities did not have much tremors but increased tone all over has a right foot drop) Results - Laboratory Findings CBC and BMP: 12/01/17 12:22 12/01/17 12:22 Abnormal lab findings: Abnormal lab results MCHC 31.0 g/dL (31.6-35.5) L 12/01/17 12:22 Carbon Dioxide 32 mEq/L (23-29) H 12/01/17 12:22 Creatinine 0.55 mg/dL (0.60-1.20) L 12/01/17 12:22 Cholesterol 204 mg/dL (< 200) H 12/02/17 09:14 LDL Cholesterol, Calc 142 mg/dL (0-99) H 12/02/17 09:14 Cholesterol/HDL Ratio 5.0 (0-4.9) H 12/02/17 09:14 Urine Clarity Cloudy (Clear) A 12/01/17 13:15 Ur Specific [place] 1.029 (1.010-1.025) H 12/01/17 13:15 Ur Leukocyte Esterase Moderate (Negative) H 12/01/17 13:15 Urine Microscopic WBC TNTC per hpf (0-3) H 12/01/17 13:15 Ur Squamous Epith Cells Many per lpf (None-Few) H 12/01/17 13:15 Urine Bacteria Many per hpf (None-Few) H 12/01/17 13:15 Consult Discharge Plan - Plan Referrals: Andrade Ulrich MD [Primary Care Provider] -
[2017-12-02] MEDS ORDERED: Perflutren Lipid Microsphere 1.3 ML in 0.9 % Sodium Chloride 8.7 ML IVP ONE (16:04)
[2017-12-02] MEDS ORDERED: Perflutren Lipid Microsphere 2 ML VIAL ONE (16:13)
[2017-12-02] MEDS: Carbidopa/Levodopa 25/100 TABLET PO SCH (17:26)
[2017-12-02] MEDS: Aspirin 81 MG TAB.CHEW PO SCH (23:00)
[2017-12-02] MEDS: Docusate Oral Soln 100 MG/10 ML UDC PO SCH (23:10)
[2017-12-03] MEDS: D5% in 0.9% NACL 1,000 ML IVC SCH ×2 (04:30→22:08)
[2017-12-03 05:22] LABS: Basophils % 0.7 %; Eosinophils # 0.1 K/mcL (0.0-0.6); Eosinophils % 2.7 %; Hematocrit 37.8 % (35.3-44.9); Hemoglobin 11.8 g/dL (11.5-15.4); Immature Granulocytes % 0.2 % (0-4); Lymphocytes # 1.5 K/mcL (0.6-4.6); Lymphocytes % 32.2 %; Mean Corpuscular HGB Conc 31.2 g/dL (31.6-35.5); Mean Corpuscular Hemoglobin 28.4 pg (28.0-33.3); Mean Corpuscular Volume 90.9 fL (83.0-100.0); Mean Platelet Volume 11.4 fL (9.4-12.4); Monocytes # 0.5 K/mcL (0.0-1.3); Monocytes % 11.3 %; Neutrophils # 2.4 K/mcL (1.6-8.9); Platelet Count 148 K/mcL (140-400); Red Blood Count 4.16 M/mcL (3.82-4.97); Red Cell Distribution Width 13.5 % (11.5-14.5); Segmented Neutrophils % 52.9 %
[2017-12-03 05:37] LABS: BUN/Creatinine Ratio 24 (6-26); Blood Urea Nitrogen 11 mg/dL (8-23); Carbon Dioxide 31 mEq/L (23-29); Chloride 109 mEq/L (98-107); Glucose 95 mg/dL (70-105); Osmolality,Calculated 299 (280-300); Potassium 3.2 mEq/L (3.5-5.1); Sodium 145 mEq/L (136-145); eGFR For African Americans > 60 (> 60); eGFR For Non-African Americans > 60 (> 60)
[2017-12-03] MEDS: *HR* Enoxaparin 40 MG/0.4 ML SYRINGE SQ SCH (06:22)
[2017-12-03] MEDS: Carbidopa/Levodopa 25/100 TABLET PO SCH ×2 (06:24→17:11)
[2017-12-03] MEDS ORDERED: Potassium Chloride Elixir 20 MEQ/15 ML UDC PO ONE (08:08)
[2017-12-03 08:22] LABS: Magnesium 1.8 mg/dL (1.6-2.6)
--- NOTE | 2017-12-03 08:48 | Discharge Summary ---
<Abdirashid Werner - Last Filed: 12/03/17 14:32> Date of Encounter: 12/03/17 - Discharge Diagnosis (1) Chronic a-fib Status: Chronic (2) Parkinson disease Status: Chronic (3) Dementia Status: Chronic Qualifiers: Dementia type: Parkinson's disease Dementia behavioral disturbance: with behavioral disturbance Qualified Code(s): G20 - Parkinson's disease; F02.81 - Dementia in other diseases classified elsewhere with behavioral disturbance (4) [facility] resident Status: Chronic (5) DVT prophylaxis Status: Acute (6) Obesity (BMI 30-39.9) Status: Chronic (7) Chronic respiratory failure with hypoxia Status: Chronic (8) HTN (hypertension) Status: Chronic Qualifiers: Hypertension type: essential hypertension Qualified Code(s): I10 - Essential (primary) hypertension (9) Blurry vision Status: Acute (10) History of CVA with residual deficit Status: Chronic (11) UTI (urinary tract infection) Status: Acute (12) Dehydration Status: Acute Hospital course: Ms. Gibbons is a 77 year old female - Time Spent with Patient Total time spent providing and/or coordinating discharge services: - Discharge Medications Prescriptions: cephALEXin [Keflex] 500 mg PO BID #10 capsule Home Medications: Albuterol Sulfate [Proair Respiclick] 1 puff IH Q6H PRN 09/26/15 [History] Bisacodyl [Dulcolax] 10 mg RC DAILY PRN 09/26/15 [History] Carvedilol 3.125 mg PO Q12H 09/26/15 [History] Donepezil [Aricept] 5 mg PO HS 09/26/15 [History] Levothyroxine [Synthroid] 175 mcg PO 0600 09/26/15 [History] Lisinopril 2.5 mg PO QAM 09/26/15 [History] Polyethylene Glycol 3350 [MiraLAX] 17 gm PO HS 09/26/15 [History] Sennosides [Senna] 8.6 mg PO BID PRN 09/26/15 [History] rOPINIRole [Requip] 1 mg PO HS 09/26/15 [History] GuaiFENesin/Dextromethorphan [Robitussin/Dm] 10 ml PO Q4H PRN 04/21/16 [History] Ondansetron HCl [Zofran] 4 mg PO Q4H PRN 04/21/16 [History] Cholecalciferol (D-3) [Vitamin D] 1,000 unit PO QAM tablet 04/24/16 [Rx] Ferrous Sulfate 325 mg PO TIDWM tablet 04/24/16 [Rx] Folic Acid 1 mg PO DAILY tablet 04/24/16 [Rx] ALPRAZolam [Xanax 0.5 MG Tablet] 0.5 mg PO BID #20 tablet 06/02/16 [Rx] Cyanocobalamin (Vitamin B-12) [Vitamin B12] 1,000 mcg PO DAILY 06/02/16 [History ] Docusate [Colace] 100 mg PO BID 06/02/16 [History] Ipratropium/Albuterol Neb [Duoneb] 3 ml IH Q4H PRN 06/02/16 [History] Oxygen 3 l NS AD 06/02/16 [History] Acetaminophen [Tylenol] 500 mg PO Q6HR PRN 11/12/17 [History] Albuterol Neb [Proventil Neb] 2.5 mg IH Q4HR 11/12/17 [History] Budesonide/Formoterol 160/4.5 [Symbicort 160/4.5] 1 puff IH BIDR 11/12/17 [ History] Buspirone HCl [Buspar] 10 mg PO BID 11/12/17 [History] MOM Conc [MILK OF MAGNESIA conc] 30 ml PO DAILY PRN 11/12/17 [History] Melatonin/Pyridoxine HCl (B6) [Melatonin 5 mg Tablet] 1 tab PO HS PRN 11/12/17 [ History] Nitroglycerin [Nitrostat] 0.4 mg SL Q5M PRN 11/12/17 [History] OxyCODONE Immed Rel [Roxicodone 10 MG] 10 mg PO QID PRN 11/12/17 [History] Promethazine HCl 12.5 mg PO Q6H PRN 11/12/17 [History] Gabapentin [Neurontin] 800 mg PO TID 12/01/17 [History] Linaclotide [Linzess] 290 mcg PO DAILY 12/01/17 [History] Mirtazapine [Remeron] 15 mg PO HS 12/01/17 [History] Omeprazole [PriLOSEC] 40 mg PO DAILY 12/01/17 [History] Aspirin 81 mg PO DAILY 12/02/17 [History] Carbidopa/Levodopa [Carbidopa-Levodopa 25-100 Tab] 1 tab PO BID 12/02/17 [ History] Docusate [Colace] 100 mg PO BID udc 12/03/17 [Rx] cephALEXin [Keflex] 500 mg PO BID #10 capsule 12/03/17 [Rx] Allergies/Adverse Reactions: 3 Allergy/AdvReac Type Severity Reaction Status Date / Time Erythromycin Base Allergy Unknown See Verified 04/21/16 14:16 Comments morphine Allergy Unknown See Verified 04/21/16 14:16 Comments Sulfa (Sulfonamide AdvReac Unknown Nausea Verified 04/21/16 14:16 Antibiotics) Date of admission: 12/01/17 15:17 Primary care physician: Andrade Ulrich MD Consults: 12/01/17 23:28 Consult to Immigration Lawyer [CONS] Routine Reason for SW Consult: SNF resident 12/02/17 11:05 Consult to Physical Therapy [CONS] Routine Comment: Evaluate, develop and implement POC Reason for Consult: weakness Does patient have active BEDREST order?: No Is patient medically & hemodynamically stable?: Yes - Constitutional Vitals: Temp Pulse Resp BP Pulse Ox 98 F 73 16 107/51 94 12/03/17 07:46 12/03/17 07:46 12/03/17 10:47 12/03/17 07:46 12/03/17 10:47 - Patient Status Disposition: Transfer SNF Condition: Fair - Discharge Instructions Follow Up With: Andrade Ulrich MD [Primary Care Provider] - - Attending Attestation I performed an independent interview and exam of this patient. I agree with the findings, assessment, and plan of , internal medicine resident. Patient has improved. No evidence of stroke on imaging. Neurology evaluation noted and appreciated. Patient remains on antibiotics for urinary tract infection. Will transition to Keflex at discharge with anticipated 5-7 day course. She will need to stay well hydrated and I discussed this with her . I am concerned the patient is experiencing failure to thrive, and as such is not taking good oral intake and getting dehydrated. This could precipitate urinary tract infections. Patient otherwise is doing well and deemed stable for discharge back to the facility from where she came. All else as outlined above. 33 minutes spent on discharge and Coordination of care. <Goyo Bello - Last Filed: 12/03/17 17:12> - NOTES TO OUTPATIENT PROVIDER Notes to Outpatient Provider: Follow up on urine culture results. Patient was switched to Keflex upon discharge. Encourage hydration and good oral intake. Continue Parkinson medications and antiplatelet therapy. Date of Encounter: 12/03/17 Time of Encounter: 08:46 - Discharge Diagnosis (1) UTI (urinary tract infection) Priority: Primary Status: Acute (2) Dehydration Priority: Primary Status: Acute (3) Parkinson disease Priority: Secondary Status: Chronic (4) Dementia Priority: Secondary Status: Chronic Qualifiers: Dementia type: Parkinson's disease Dementia behavioral disturbance: with behavioral disturbance Qualified Code(s): G20 - Parkinson's disease; F02.81 - Dementia in other diseases classified elsewhere with behavioral disturbance (5) Chronic respiratory failure with hypoxia Priority: Secondary Status: Chronic (6) Chronic a-fib Priority: Secondary Status: Chronic (7) HTN (hypertension) Priority: Secondary Status: Chronic Qualifiers: Hypertension type: essential hypertension Qualified Code(s): I10 - Essential (primary) hypertension (8) History of CVA with residual deficit Priority: Secondary Status: Chronic (9) Blurry vision Priority: Secondary Status: Acute (10) [facility] resident Priority: Secondary Status: Chronic (11) Obesity (BMI 30-39.9) Priority: Secondary Status: Chronic (12) DVT prophylaxis Priority: Secondary Status: Acute Hospital course: Ms. Gibbons is a 77 year old female long-term resident of retirement facility, with a past medical history of Parkinson's disease, dementia, hypothyroidism, HTN, hyperlipidemia, dysphagia oral phase, speech disturbance, and bed-bound/ non ambulatory baseline status and who was brought from the SNF due to worsening vision for a week. In the ER, she was worked up for CVA, Head and neck CTA was unremarkable, and she was admitted for suspected TIA. 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 though able to communicate able to recognize the family members significant hypophonia also has a right foot drop history of back surgery in the past. She has not been able to get up and walk by herself for several years. Last hospitalization was in 2016, there is no comparison for neurologic examination findings which are as documented in the examination section. Neurology evaluated the patient and found no evidence of an acute stroke. Recommended continued antiplatelet therapy as well as making sure she gets medication on time for underlying Parkinson disease. Patient was started on antibiotics for urinary tract infection. Urine cultures are pending at time of discharge. Will transition to Keflex with anticipated 5- 7 day course. She will need to stay well hydrated due to concerns for experiencing failure to thrive. Patient was otherwise doing well and deemed stable for discharge back to the SNF facility. Discharge discussed with: patient, nurse Time spent discussing smoking cessation with patient: more than 10 minutes - Time Spent with Patient Total time spent providing and/or coordinating discharge services: Date of admission: 12/01/17 15:17 Primary care physician: Andrade Ulrich MD Consults: 12/01/17 23:28 Consult to Immigration Lawyer [CONS] Routine Reason for SW Consult: SNF resident 12/02/17 11:05 Consult to Physical Therapy [CONS] Routine Comment: Evaluate, develop and implement POC Reason for Consult: weakness Does patient have active BEDREST order?: No Is patient medically & hemodynamically stable?: Yes Discharging clinician: Goyo Bello Anticipated date of discharge: 12/04/17 - Constitutional Vitals: Temp Pulse Resp BP Pulse Ox 98 F 73 16 107/51 94 12/03/17 07:46 12/03/17 07:46 12/03/17 07:46 12/03/17 07:46 12/03/17 07:46 General appearance: Present: cooperative, A&O X 2, pleasant, no acute distress, obese, answers questions appropriately - Head Head exam: Present: atraumatic, normocephalic - Eye Eye exam: Present: PERRL, conjuntiva pink, sclera anicteric Pupils: Present: PERRL - Neck Neck exam general surgery: Present: supple, trachea midline. Absent: lymphadenopathy - Respiratory Respiratory exam: Present: CTAB. Absent: accessory muscle use, rales, rhonchi, wheezes - Cardiovascular Cardiovascular exam: Present: RRR, +S1, +S2. Absent: diastolic murmur, gallop, rubs, systolic murmur - GI/Abdominal GI/Abdominal exam: Present: normal bowel sounds, soft, no peritoneal signs. Absent: distended, tenderness - Extremities Exam Extremities exam: Present: warm, radial pulses palpable and symmetrical. Absent : calf tenderness, cyanotic, pedal edema - Back Exam Back exam: Present: normal inspection, tenderness - Neurological Exam Neurological exam: Present: alert, altered, CN II-XII intact, no focal deficits. Absent: motor sensory deficit, pronater drift, facial droop, speech deficit - Expanded Neurological Exam Neurological exam expanded: Absent: receptive aphasia, total aphasia Speech: Absent: fluid speech, slurred, total aphasia - Psychiatric Psychiatric exam: Present: normal affect, normal mood - Skin Skin exam: Present: dry, intact, warm - Patient Status Overall status at discharge: patient is progressing back to baseline - Diet and Activity Activity: as per physical therapy, increase activity as tolerated Diet: other (Vanilla Ensure HP BID, no straw, meds crushed in pureed)
--- NOTE | 2017-12-03 08:51 | Physician Discharge Referral ---
ExtendedCare Referral Info Transfer To: SNF Provider in Charge: Abdirashid Werner Provider in Charge after Transfer: PCP Institutional Level of Care: Skilled - Diagnosis (1) UTI (urinary tract infection) Priority: Primary Status: Acute (2) Dehydration Priority: Primary Status: Acute (3) Parkinson disease Priority: Secondary Status: Chronic (4) Dementia Priority: Secondary Status: Chronic (5) Chronic respiratory failure with hypoxia Priority: Secondary Status: Chronic (6) Chronic a-fib Priority: Secondary Status: Chronic (7) HTN (hypertension) Priority: Secondary Status: Chronic (8) History of CVA with residual deficit Priority: Secondary Status: Chronic (9) Blurry vision Priority: Secondary Status: Acute (10) group home resident Priority: Secondary Status: Chronic (11) Obesity (BMI 30-39.9) Priority: Secondary Status: Chronic (12) DVT prophylaxis Priority: Secondary Status: Acute Prognosis: Fair Aware of Diagnosis: Patient Aware of Prognosis: Patient - Transfer Medications Home Medications: Albuterol Sulfate [Proair Respiclick] 1 puff IH Q6H PRN 09/26/15 [History] Bisacodyl [Dulcolax] 10 mg RC DAILY PRN 09/26/15 [History] Carvedilol 3.125 mg PO Q12H 09/26/15 [History] Donepezil [Aricept] 5 mg PO HS 09/26/15 [History] Levothyroxine [Synthroid] 175 mcg PO 0600 09/26/15 [History] Lisinopril 2.5 mg PO QAM 09/26/15 [History] Polyethylene Glycol 3350 [MiraLAX] 17 gm PO HS 09/26/15 [History] Sennosides [Senna] 8.6 mg PO BID PRN 09/26/15 [History] rOPINIRole [Requip] 1 mg PO HS 09/26/15 [History] GuaiFENesin/Dextromethorphan [Robitussin/Dm] 10 ml PO Q4H PRN 04/21/16 [History] Ondansetron HCl [Zofran] 4 mg PO Q4H PRN 04/21/16 [History] Cholecalciferol (D-3) [Vitamin D] 1,000 unit PO QAM tablet 04/24/16 [Rx] Ferrous Sulfate 325 mg PO TIDWM tablet 04/24/16 [Rx] Folic Acid 1 mg PO DAILY tablet 04/24/16 [Rx] ALPRAZolam [Xanax 0.5 MG Tablet] 0.5 mg PO BID #20 tablet 06/02/16 [Rx] Cyanocobalamin (Vitamin B-12) [Vitamin B12] 1,000 mcg PO DAILY 06/02/16 [History ] Docusate [Colace] 100 mg PO BID 06/02/16 [History] Ipratropium/Albuterol Neb [Duoneb] 3 ml IH Q4H PRN 06/02/16 [History] Oxygen 3 l NS AD 06/02/16 [History] Acetaminophen [Tylenol] 500 mg PO Q6HR PRN 11/12/17 [History] Albuterol Neb [Proventil Neb] 2.5 mg IH Q4HR 11/12/17 [History] Budesonide/Formoterol 160/4.5 [Symbicort 160/4.5] 1 puff IH BIDR 11/12/17 [ History] Buspirone HCl [Buspar] 10 mg PO BID 11/12/17 [History] MOM Conc [Milk of Magnesia Conc] 30 ml PO DAILY PRN 11/12/17 [History] Melatonin/Pyridoxine HCl (B6) [Melatonin 5 mg Tablet] 1 tab PO HS PRN 11/12/17 [ History] Nitroglycerin [Nitrostat] 0.4 mg SL Q5M PRN 11/12/17 [History] OxyCODONE Immed Rel [Roxicodone 10 MG] 10 mg PO QID PRN 11/12/17 [History] Promethazine HCl 12.5 mg PO Q6H PRN 11/12/17 [History] Gabapentin [Neurontin] 800 mg PO TID 12/01/17 [History] Linaclotide [Linzess] 290 mcg PO DAILY 12/01/17 [History] Mirtazapine [Remeron] 15 mg PO HS 12/01/17 [History] Omeprazole [PriLOSEC] 40 mg PO DAILY 12/01/17 [History] Aspirin 81 mg PO DAILY 12/02/17 [History] Carbidopa/Levodopa [Carbidopa-Levodopa 25-100 Tab] 1 tab PO BID 12/02/17 [ History] Allergies/Adverse Reactions: 3 Allergy/AdvReac Type Severity Reaction Status Date / Time Erythromycin Base Allergy Unknown See Verified 04/21/16 14:16 Comments morphine Allergy Unknown See Verified 04/21/16 14:16 Comments Sulfa (Sulfonamide AdvReac Unknown Nausea Verified 04/21/16 14:16 Antibiotics) - Respiratory Orders Oxygen / L per min (2.5L) Smoking Cessation: Smoking cessation has been advised. For more information, call the [employer] Quit Line at 0-539-DUIZ-NOW. - Ancillary Orders May use pressure relief devices daily prn - Advance Directives Code Status: Full Code - Mobility Orders Ambulate - Rehabiliation Orders Rehab Potential: Good Rehab Orders: Evaluation for Physical Therapy, Evaluation for Occupational Therapy, Evaluation for Speech Therapy - Treatments Skin tear care topically daily PRN per policy, May check for fecal impaction rectally daily PRN, Fleet enema rectally every other day PRN cleansing purposes - Diet Orders Mechanical Soft, Pureed (no straw, meds crushed in pureed, Vanilla ensure HP BID ) House Supplement per Dietary: Vanilla ensure HP BID CERTIFICATION: I certify that the transfer of the above named patient to an Extended Care Facility is necessary for the continuing treatment of the diagnosis listed. The above information is true and accurate reflection of patient's current condition. Confidential - Redisclosure prohibited without a patient's written consent.
[2017-12-03] MEDS: Insulin LISPRO 300 UNITS/3 ML VIAL SQ SCH ×4 (09:48→21:40)
[2017-12-03] MEDS: cefTRIAXone 1,000 MG in Water for inj. (sterile) 20 ML 10 ML IVP SCH (09:48)
[2017-12-03] MEDS: Docusate Oral Soln 100 MG/10 ML UDC PO SCH ×2 (09:50→21:40)
[2017-12-03] MEDS: Ferrous Sulfate Oral Soln 300 MG/5 ML UDC PO SCH ×3 (09:51→17:10)
[2017-12-03] MEDS: Gabapentin 400 MG CAPSULE PO SCH ×3 (09:51→21:39)
[2017-12-03] MEDS: Cyanocobalamin (B-12) 1,000 MCG TABLET PO SCH (09:51)
[2017-12-03] MEDS: Folic Acid 1 MG TABLET PO SCH (09:51)
[2017-12-03] MEDS: Cholecalciferol (D-3) 1,000 UNIT TABLET PO SCH (09:51)
[2017-12-03] MEDS: ALPRAZolam 0.5 MG TABLET PO SCH ×2 (09:52→21:39)
[2017-12-03] MEDS: *HR* OxyCODONE Immed Rel 5 MG TABLET PO PRN ×2 (10:00→17:11)
[2017-12-03] MEDS: Budesonide/Formoterol 160/4.5 MDI IH SCH ×2 (10:45→20:33)
--- NOTE | 2017-12-03 11:21 | Neurology Progress Note ---
Date of Encounter: 12/03/17 Time of Encounter: 07:25 Assessment and Plan (1) Parkinson disease Current Visit: Yes Status: Chronic Patient has advanced Parkinson also has a history of a stroke back problem with right leg weakness I suggest that she should continue on the Parkinson medication at the same time continue on antiplatelet therapy. Overall she seems to be doing better now back to her baseline her speech deficit is likely related to underlying Parkinson disease make sure she get medication on time. No evidence of any acute stroke on neurological examination next and continue on antiplatelet therapy as well as other medication. Other treatment is as per primary team (2) Chronic a-fib Current Visit: Yes Status: Chronic (3) prison resident Current Visit: Yes Status: Chronic Subjective Interval history: This patient seemed to be doing better more alert and awake able to follow simple commands his speech is also improved Objective - Constitutional Vitals: Temp Pulse Resp BP Pulse Ox 98 F 73 16 107/51 94 12/03/17 07:46 12/03/17 07:46 12/03/17 10:47 12/03/17 07:46 12/03/17 10:47 - Neurological Exam Sensorimotor examination: Present: intact (More alert and awake today his speech is better able to understand and able to have a conversation no new focal motor weakness she did have a baseline weakness of the right lower extremity with the right foot drop not able to ambulate because of it) Motor examination - left side: 3/5: hip flexors, receiving barn custodian, quadriceps, tibialis Anterior, toe extension (EHL), plantarflexion, 4/5: deltoids, biceps, triceps, wrist flexion, wrist extension Sensation intact: Present: intact, light touch, pain, temperature, vibration Reflex and gait examination: intact Mental Status Examination: Present: awake, alert, oriented to person, oriented to place, oriented to time, follows commands appropriately, answers questions appropriately, makes eye contact, follows simple commands, localizes noxious stimulation Cranial nerve examination: Present: PERRL, EOMI, visual ward intact, no facial asymmetry is present (AAO, follows command able to count the fingers significant hypophonia but comprehension is intact. She is moving both upper extremities did not have much tremors but increased tone all over has a right foot drop) Results - Laboratory Findings CBC and BMP: 12/03/17 04:33 12/03/17 04:33 Abnormal lab findings: Abnormal lab results MCHC 31.2 g/dL (31.6-35.5) L 12/03/17 04:33 Potassium 3.2 mEq/L (3.5-5.1) L 12/03/17 04:33 Chloride 109 mEq/L (98-107) H 12/03/17 04:33 Carbon Dioxide 31 mEq/L (23-29) H 12/03/17 04:33 Creatinine 0.45 mg/dL (0.60-1.20) L 12/03/17 04:33 POC Glucose 128 mg/dL (70-99) H 12/02/17 19:43 Cholesterol 204 mg/dL (< 200) H 12/02/17 09:14 LDL Cholesterol, Calc 142 mg/dL (0-99) H 12/02/17 09:14 Cholesterol/HDL Ratio 5.0 (0-4.9) H 12/02/17 09:14 Urine Clarity Cloudy (Clear) A 12/01/17 13:15 Ur Specific [place] 1.029 (1.010-1.025) H 12/01/17 13:15 Ur Leukocyte Esterase Moderate (Negative) H 12/01/17 13:15 Urine Microscopic WBC TNTC per hpf (0-3) H 12/01/17 13:15 Ur Squamous Epith Cells Many per lpf (None-Few) H 12/01/17 13:15 Urine Bacteria Many per hpf (None-Few) H 12/01/17 13:15 Consult Discharge Plan - Plan Referrals: Andrade Ulrich MD [Primary Care Provider] -
[2017-12-03] MEDS: rOPINIRole 1 MG TABLET PO SCH (21:40)
[2017-12-03] MEDS: Mirtazapine 15 MG TABLET PO SCH (21:40)
[2017-12-03] MEDS: Aspirin 81 MG TAB.CHEW PO SCH (21:40)
[2017-12-04] MEDS: Carbidopa/Levodopa 25/100 TABLET PO SCH ×2 (06:05→16:42)
[2017-12-04] MEDS: *HR* Enoxaparin 40 MG/0.4 ML SYRINGE SQ SCH (06:05)
[2017-12-04 06:29] LABS: BUN/Creatinine Ratio 25 (6-26); Blood Urea Nitrogen 13 mg/dL (8-23); Calcium 8.8 mg/dL (8.6-10.3); Carbon Dioxide 29 mEq/L (23-29); Chloride 113 mEq/L (98-107); Glucose 92 mg/dL (70-105); Osmolality,Calculated 304 (280-300); Potassium 3.3 mEq/L (3.5-5.1); Sodium 147 mEq/L (136-145); eGFR For African Americans > 60 (> 60); eGFR For Non-African Americans > 60 (> 60)
[2017-12-04] MEDS ORDERED: Potassium Effervescent 25 MEQ TABLET.EFF PO ONE (09:02)
--- NOTE | 2017-12-04 09:05 | Internal Med Progress Note ---
<Goyo Bello - Last Filed: 12/04/17 10:08> Date of Encounter: 12/04/17 Time of Encounter: 09:03 - Assessment and plan (1) UTI (urinary tract infection) Current Visit: Yes Status: Acute Assessment and plan: Date number-one IV Rocephin. DC Dey which was placed in the emergency department. Previous cultures show pansensitive Escherichia coli in September 2016, pansensitive staph aureus in May 2016, Proteus in November 2015 sensitive to ceftriaxone but resistant to fluoroquinolone Will transition to Keflex at discharge with anticipated 5-7 day course. Await culture data and adjust antibiotics depending on sensitivities. Qualifiers: Urinary tract infection type: acute cystitis Hematuria presence: without hematuria Qualified Code(s): N30.00 - Acute cystitis without hematuria (2) Parkinson disease Current Visit: Yes Status: Chronic Assessment and plan: chronic, stable On sinemet Dysphagia - Swallow eval done with reccs in chart (3) Dementia Current Visit: No Status: Chronic Assessment and plan: Continue current therapy Qualifiers: Dementia type: Parkinson's disease Dementia behavioral disturbance: with behavioral disturbance Qualified Code(s): G20 - Parkinson's disease; F02.81 - Dementia in other diseases classified elsewhere with behavioral disturbance (4) Chronic respiratory failure with hypoxia Current Visit: Yes Status: Chronic Assessment and plan: continue home O2 (5) Chronic a-fib Current Visit: Yes Status: Chronic Assessment and plan: not on anticoagulation, reason unknown, continue asa 81 MG PO DAILY Rate controlled (6) HTN (hypertension) Current Visit: Yes Status: Chronic Assessment and plan: controlled, continue home meds Qualifiers: Hypertension type: essential hypertension Qualified Code(s): I10 - Essential (primary) hypertension (7) History of CVA with residual deficit Current Visit: Yes Status: Chronic Assessment and plan: Patient with residual dysarthria, paraparesis, suspect R facial droop too is chronic Patient is mostly bed bound at her SNF Fall precautions Speech therapy eval completed, notes from SNF states -"oral phase dysphagia" as one of her diagnoses Continue home meds Fall precautions DVT prophylaxis (8) Blurry vision Current Visit: Yes Status: Acute Assessment and plan: Resolved. She marked if this could be related to dehydration and UTI. We will await further neurology input. (9) custodial resident Current Visit: Yes Status: Chronic Assessment and plan: SW eval for return to SNF (10) Obesity (BMI 30-39.9) Current Visit: Yes Status: Chronic Assessment and plan: chronic, stable (11) DVT prophylaxis Current Visit: No Status: Acute Assessment and plan: SCDs (12) Dehydration Current Visit: Yes Status: Acute Assessment and plan: Patient with diminished oral intake. No GI complaints. If this is related to failure to thrive. Swallow evaluation is complete and recommendations in chart. We will continue to encourage oral intake. - Time Spent With Patient Total time spent is greater than 50% in coordination of care (as documented) at patient's floor/unit and/or counseling patient: - Subjective Interval history: Patient has no new c/o. Potassium was supplemented this AM. Patient had BM yesterday. Dey has been removed. Conditional discharge orders in place, awaiting placement to SNF facility. - Constitutional Vitals: Temp Pulse Resp BP Pulse Ox 98.6 F 56 16 119/59 99 12/04/17 07:32 12/04/17 07:32 12/04/17 07:32 12/04/17 07:32 12/04/17 07:32 General appearance: Present: cooperative, A&O X 2, pleasant, no acute distress, obese, answers questions appropriately - Head Head exam: Present: atraumatic, normocephalic - Eye Eye exam: Present: PERRL, conjuntiva pink, sclera anicteric Pupils: Present: PERRL - ENT ENT exam: Present: mucous membranes moist, normal oropharynx - Neck Neck exam general surgery: Present: supple, trachea midline. Absent: lymphadenopathy - Respiratory Respiratory exam: Present: CTAB. Absent: accessory muscle use, rales, rhonchi, wheezes - Cardiovascular Cardiovascular exam: Present: RRR, +S1, +S2. Absent: diastolic murmur, gallop, rubs, systolic murmur - GI/Abdominal GI/Abdominal exam: Present: normal bowel sounds, soft, no peritoneal signs. Absent: distended, tenderness - Extremities Exam Extremities exam: Present: warm, radial pulses palpable and symmetrical. Absent : calf tenderness, cyanotic, pedal edema - Back Exam Back exam: Present: normal inspection. Absent: tenderness - Neurological Exam Neurological exam: Present: alert, altered, CN II-XII intact. Absent: pronater drift, facial droop, speech deficit - Psychiatric Psychiatric exam: Present: normal affect, normal mood - Skin Skin exam: Present: dry, intact, warm Internal Medicine: Result - Labs CBC & Chem 7: 12/03/17 04:33 12/04/17 04:59 Labs: BMP 12/04/17 04:59 Sodium 147 H Potassium 3.3 L Chloride 113 H Carbon Dioxide 29 BUN 13 Creatinine 0.52 L Glucose 92 Calcium 8.8 - ABG Interpretation ABG results: PT/INR, D-dimer PT 11.0 Seconds (9.4-12.1) 12/01/17 12:22 - Pulse Oximetry Interpretation Digit-Finger Pulse Oximetry Readin (on RA) - Impressions Impressions Echocardiogram 12/01/17 20:49 Impressions: LVEF 55%. Asymmetric septal hypertrophy. No LVOT obstruction. Indeterminate diastolic function. Definity echo contrast was used. RV is not well visualized. Not all valves were well evaluataed. Unable to estimate RVSP - suboptimal TR signal. Left Ventricular Wall Motion: Rest Echo Findings All wall segments showed normal motion. Findings: Study Quality * Technically challenging due to clinical status - patient supine for exam. ECG Findings * Sinus rhythm with BBB. Left Ventricle * LVEF 55%. * Asymmetric septal hypertrophy. No LVOT obstruction. * Indeterminate diastolic function. * There is no LV thrombus. * Definity echo contrast was used. Right Ventricle * RV is not well visualized. Left Atrium * Normal left atrial size. Right Atrium * Right atrium is not well visualized. Aortic Valve * Trace aortic regurgitation. * No aortic stenosis. * Aortic valve not well visualized. Mitral Valve * Normal mitral valve structure. * No mitral stenosis. * No mitral regurgitation. Tricuspid Valve * Tricuspid valve not well visualized. * Suboptimal Doppler exam. Pulmonic Valve * Pulmonic valve is not well visualized. * Suboptimal Doppler exam. Pulmonary Artery * Pulmonary artery not well visualized. Aorta * Not well visualized. Pericardium * There is no pericardial effusion present. Interatrial Septum * Interatrial septum not well evaluated. IVC * The IVC is not well evaluated. Consult Discharge Plan - Plan Referrals: Andrade Ulrich MD [Primary Care Provider] - Prescriptions: cephALEXin [Keflex] 500 mg PO BID #10 capsule Glucagon HCl 1 mg IJ PRN PRN #5 vial PRN Reason: Blood glucose < 70 <Werner,Abdirashid R - Last Filed: 12/04/17 15:21> Date of Encounter: 12/04/17 - Assessment and plan (1) Chronic a-fib Current Visit: Yes Status: Chronic (2) Parkinson disease Current Visit: Yes Status: Chronic (3) Dementia Current Visit: No Status: Chronic Qualifiers: Dementia type: Parkinson's disease Dementia behavioral disturbance: with behavioral disturbance Qualified Code(s): G20 - Parkinson's disease; F02.81 - Dementia in other diseases classified elsewhere with behavioral disturbance (4) custodial resident Current Visit: Yes Status: Chronic (5) DVT prophylaxis Current Visit: No Status: Acute (6) Obesity (BMI 30-39.9) Current Visit: Yes Status: Chronic (7) Chronic respiratory failure with hypoxia Current Visit: Yes Status: Chronic (8) HTN (hypertension) Current Visit: Yes Status: Chronic Qualifiers: Hypertension type: essential hypertension Qualified Code(s): I10 - Essential (primary) hypertension (9) Blurry vision Current Visit: Yes Status: Acute (10) History of CVA with residual deficit Current Visit: Yes Status: Chronic (11) UTI (urinary tract infection) Current Visit: Yes Status: Acute Qualifiers: Urinary tract infection type: acute cystitis Hematuria presence: without hematuria Qualified Code(s): N30.00 - Acute cystitis without hematuria (12) Dehydration Current Visit: Yes Status: Acute - Time Spent With Patient Total time spent is greater than 50% in coordination of care (as documented) at patient's floor/unit and/or counseling patient: - Constitutional Vitals: Temp Pulse Resp BP Pulse Ox 97.9 F 55 16 121/59 98 12/04/17 12:08 12/04/17 12:08 12/04/17 12:08 12/04/17 12:08 12/04/17 12:08 Internal Medicine: Result - Labs CBC & Chem 7: 12/03/17 04:33 12/04/17 04:59 Labs: BMP 12/04/17 04:59 Sodium 147 H Potassium 3.3 L Chloride 113 H Carbon Dioxide 29 BUN 13 Creatinine 0.52 L Glucose 92 Calcium 8.8 - ABG Interpretation ABG results: PT/INR, D-dimer PT 11.0 Seconds (9.4-12.1) 12/01/17 12:22 - Attending Attestation I performed an independent interview and examine this patient. I agree with the findings, assessment, and plan of Dr. Bello, internal medicine resident. Patient is clinically improved. She will continue on antibiotics for urinary tract infection with an anticipated seven-day course, she is currently on Keflex. She will need to stay well hydrated as I believe this had a significant role in the reason she was admitted. He felt discharge summary dictated on 12/03/2017, assessment and plan and findings have not changed. Patient is stable for discharge and anticipate she will be discharged later today. All else as outlined above.
[2017-12-04] MEDS: Cholecalciferol (D-3) 1,000 UNIT TABLET PO SCH (09:14)
[2017-12-04] MEDS: Gabapentin 400 MG CAPSULE PO SCH ×2 (09:15→14:30)
[2017-12-04] MEDS: Cyanocobalamin (B-12) 1,000 MCG TABLET PO SCH (09:15)
[2017-12-04] MEDS: Folic Acid 1 MG TABLET PO SCH (09:16)
[2017-12-04] MEDS: ALPRAZolam 0.5 MG TABLET PO SCH (09:17)
[2017-12-04] MEDS: cefTRIAXone 1,000 MG in Water for inj. (sterile) 20 ML 10 ML IVP SCH (09:17)
[2017-12-04] MEDS: Ferrous Sulfate Oral Soln 300 MG/5 ML UDC PO SCH ×3 (09:17→16:43)
[2017-12-04] MEDS: Insulin LISPRO 300 UNITS/3 ML VIAL SQ SCH ×3 (09:18→16:43)
[2017-12-04] MEDS: Docusate Oral Soln 100 MG/10 ML UDC PO SCH (09:18)
--- NOTE | 2017-12-04 09:24 | Neurology Progress Note ---
Date of Encounter: 12/04/17 Time of Encounter: 07:50 Assessment and Plan (1) Parkinson disease Current Visit: Yes Status: Chronic Patient has advanced Parkinson disease her symptoms worsening were likely related to underlying UTI. At the moment suggested that we should continue on the current dose of her Sinemet that she is been taking. She would benefit from physical therapy evaluation that could continue at the [facility]. From neurology standpoint patient is a stable She will be following with her primary neurologist as an outpatient as it was a scheduled before (2) Chronic a-fib Current Visit: Yes Status: Chronic (3) custodial resident Current Visit: Yes Status: Chronic Subjective Interval history: This patient seemed to be doing better more alert and awake able to follow simple commands his speech is also improved No new symptoms reported overall she is doing much better now Objective - Constitutional Vitals: Temp Pulse Resp BP Pulse Ox 98.6 F 56 16 119/59 99 12/04/17 07:32 12/04/17 07:32 12/04/17 07:32 12/04/17 07:32 12/04/17 07:32 - Neurological Exam Sensorimotor examination: Present: intact (More alert and awake today his speech is better able to understand and able to have a conversation no new focal motor weakness she did have a baseline weakness of the right lower extremity with the right foot drop not able to ambulate because of it) Motor examination - left side: 3/5: hip flexors, [employer] f[employer], quadriceps, tibialis Anterior, toe extension (EHL), plantarflexion, 4/5: deltoids, biceps, triceps, wrist flexion, wrist extension Sensation intact: Present: intact, light touch, pain, temperature, vibration Reflex and gait examination: intact Mental Status Examination: Present: awake, alert, oriented to person, oriented to place, oriented to time, follows commands appropriately, answers questions appropriately, makes eye contact, follows simple commands, localizes noxious stimulation Cranial nerve examination: Present: PERRL, EOMI, visual ward intact, no facial asymmetry is present (AAO, follows command able to count the fingers significant hypophonia but comprehension is intact. She is moving both upper extremities did not have much tremors but increased tone all over has a right foot drop) Results - Laboratory Findings CBC and BMP: 12/03/17 04:33 12/04/17 04:59 Abnormal lab findings: Abnormal lab results MCHC 31.2 g/dL (31.6-35.5) L 12/03/17 04:33 Sodium 147 mEq/L (136-145) H 12/04/17 04:59 Potassium 3.3 mEq/L (3.5-5.1) L 12/04/17 04:59 Chloride 113 mEq/L (98-107) H 12/04/17 04:59 Creatinine 0.52 mg/dL (0.60-1.20) L 12/04/17 04:59 Calculated Osmolality 304 (280-300) H 12/04/17 04:59 Cholesterol 204 mg/dL (< 200) H 12/02/17 09:14 LDL Cholesterol, Calc 142 mg/dL (0-99) H 12/02/17 09:14 Cholesterol/HDL Ratio 5.0 (0-4.9) H 12/02/17 09:14 Urine Clarity Cloudy (Clear) A 12/01/17 13:15 Ur Specific [place] 1.029 (1.010-1.025) H 12/01/17 13:15 Ur Leukocyte Esterase Moderate (Negative) H 12/01/17 13:15 Urine Microscopic WBC TNTC per hpf (0-3) H 12/01/17 13:15 Ur Squamous Epith Cells Many per lpf (None-Few) H 12/01/17 13:15 Urine Bacteria Many per hpf (None-Few) H 12/01/17 13:15 Consult Discharge Plan - Plan Referrals: Andrade Ulrich MD [Primary Care Provider] - Prescriptions: cephALEXin [Keflex] 500 mg PO BID #10 capsule
[2017-12-04] MEDS: Budesonide/Formoterol 160/4.5 MDI IH SCH (10:30)
[2017-12-04 12:12] VITALS: BP 121/59
[2017-12-04] MEDS: D5% in 0.9% NACL 1,000 ML IVC SCH (13:44)
[2017-12-04] MEDS: *HR* OxyCODONE Immed Rel 5 MG TABLET PO PRN (16:42)
== END 2017-12-04 18:45 ==
LOC: 2NENU 11:34 → EMEROO 11:34 → 2NENU 15:45
PROVIDERS: ADMIT Family Medicine; ATTEND Hospitalist

== ENCOUNTER 2018-04-09 12:52 | Observation (INO) ==
--- NOTE | 2018-04-09 13:11 | Emergency Department Note ---
Disposition Clinical Impression: Weakness, H/O TIA (transient ischemic attack) and stroke, Confusion Disposition: Admitted As Inpatient Condition: Fair Referrals: NONE,PCP [Primary Care Provider] - Forms: ED Satisfaction Letter Time of Disposition: 18:58 Altered Mental Status HPI - General Chief Complaint: ED Altered Mental Status Stated Complaint: AMS Time Seen by Provider: 04/09/18 13:04 Source: EMS Limitations: no limitations, altered mental status Nursing Notes Reviewed: Yes Vital Signs Reviewed: Yes - History of Present Illness HPI Narrative: 77-year-old female presents from [facility] via EMS for evaluation of decreased responsiveness. Onset this morning at 8 AM. Per EMS, patient has history of CVA and TIA with chronic left-sided deficits. Patient's is bedside; history obtained from the patient as well as the . At baseline : patient has mobility and strength in her right upper extremity, she is nonambulatory, she has soft speech and mumbles/slurs. Today, [facility] staff noted decrease responsiveness; she was difficult to arouse. They also noted right upper extremity weakness. At this time, patient is awake at her baseline per her . She is speaking at her baseline per her . She does have some right arm weakness per her . Similar situation happened 2 days ago. is also concern about constipation. Patient notes she does have some diffuse abdominal pain. History of recurrent UTI. ROS: Positive: As above Negative: Fever, chills, nausea, vomiting, chest pains, palpitations, dyspnea, melena, hematochezia, confusion - Related Data Home Medications Medication Instructions Recorded Confirmed Albuterol Sulfate [Proair 1 puff IH Q6H PRN 09/26/15 12/01/17 Respiclick] Bisacodyl [Dulcolax] 10 mg RC DAILY PRN 09/26/15 12/01/17 Carvedilol 3.125 mg PO Q12H 09/26/15 12/01/17 Donepezil [Aricept] 5 mg PO HS 09/26/15 12/01/17 Levothyroxine [Synthroid] 175 mcg PO 0600 09/26/15 12/01/17 Lisinopril 2.5 mg PO QAM 09/26/15 12/01/17 Polyethylene Glycol 3350 [MiraLAX] 17 gm PO HS 09/26/15 12/01/17 Sennosides [Senna] 8.6 mg PO BID PRN 09/26/15 12/01/17 rOPINIRole [Requip] 1 mg PO HS 09/26/15 12/01/17 GuaiFENesin/Dextromethorphan 10 ml PO Q4H PRN 04/21/16 12/01/17 [Robitussin/Dm] Ondansetron HCl [Zofran] 4 mg PO Q4H PRN 04/21/16 12/01/17 Cyanocobalamin (Vitamin B-12) 1,000 mcg PO DAILY 06/02/16 12/01/17 [Vitamin B12] Ipratropium/Albuterol Neb [Duoneb] 3 ml IH Q4H PRN 06/02/16 12/01/17 Oxygen 3 l NS AD 06/02/16 12/01/17 Acetaminophen [Tylenol] 500 mg PO Q6HR PRN 11/12/17 12/01/17 Albuterol Neb [Proventil Neb] 2.5 mg IH Q4HR 11/12/17 12/01/17 Budesonide/Formoterol 160/4.5 1 puff IH BIDR 11/12/17 12/01/17 [Symbicort 160/4.5] Buspirone HCl [Buspar] 10 mg PO BID 11/12/17 12/01/17 MOM Conc [MILK OF MAGNESIA conc] 30 ml PO DAILY PRN 11/12/17 12/01/17 Melatonin/Pyridoxine HCl (B6) 1 tab PO HS PRN 11/12/17 12/01/17 [Melatonin 5 mg Tablet] Nitroglycerin [Nitrostat] 0.4 mg SL Q5M PRN 11/12/17 12/01/17 Promethazine HCl 12.5 mg PO Q6H PRN 11/12/17 12/01/17 Gabapentin [Neurontin] 800 mg PO TID 12/01/17 12/01/17 Linaclotide [Linzess] 290 mcg PO DAILY 12/01/17 12/01/17 Mirtazapine [Remeron] 15 mg PO HS 12/01/17 12/01/17 Omeprazole [PriLOSEC] 40 mg PO DAILY 12/01/17 12/01/17 Aspirin 81 mg PO DAILY 12/02/17 12/02/17 Carbidopa/Levodopa 1 tab PO BID 12/02/17 12/02/17 [Carbidopa-Levodopa 25-100 Tab] Previous Rx's Medication Instructions Recorded Cholecalciferol (D-3) [Vitamin D] 1,000 unit PO QAM tablet 04/24/16 Ferrous Sulfate 325 mg PO TIDWM tablet 04/24/16 Folic Acid 1 mg PO DAILY tablet 04/24/16 ALPRAZolam [Xanax 0.5 MG Tablet] 0.5 mg PO BID #20 tablet 06/02/16 Docusate [Colace] 100 mg PO BID udc 12/03/17 Glucagon HCl 1 mg IJ PRN PRN #5 vial 12/04/17 OxyCODONE Immed Rel [Roxicodone 10 10 mg PO QID PRN 7 Days #9 tablet 12/04/17 MG] Allergies Allergy/AdvReac Type Severity Reaction Status Date / Time Erythromycin Base Allergy Unknown See Verified 04/09/18 18:21 Comments morphine Allergy Unknown See Verified 04/09/18 18:21 Comments Sulfa (Sulfonamide AdvReac Unknown Nausea Verified 04/09/18 18:21 Antibiotics) All systems ED: reviewed and negative except as stated. 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 Head: atraumatic, normocephalic Eye: normal appearance, PERRL, EOMI, no scleral icterus, no conjunctival injection ENT: mucous membranes moist, normal external ear exam Neck: normal inspection, trachea midline, full ROM Chest: normal inspection, symmetric chest rise Respiratory: Poor respiratory effort. Bilateral breath sounds are clear without wheezing, crackles, or rhonchi. Cardiovascular: Regular rate and rhythm. No clicks, rubs, gallops, or murmors. Normal heart sounds. Abdomen: Bowel sounds present normoactive x-4 quadrants. Abdomen is soft, nondistended, and nontender. No guarding or rebound. No organomegaly noted. Musculoskeletal: Spontaneously moving all extremities. Skin: warm, dry, intact. Neuro: Alert and oriented x4. Bilateral facial droop however, on smiling, no asymmetry. Mild strain of speech. Patient has a very quiet voice. [place] strength is equal in right and left hands. No upper extremity limb drift. Patient is able to wiggle her toes however is unable to lift either extremity from the bed; this is her baseline. Psych: Patient's affect is appropriate for situation. - General Limitations: no limitations, altered mental status General appearance: alert, in no apparent distress Course Course Narrative: Patient denies any confusion. She knows where she was to say however is having some difficulty expressing those words; she notes her mouth is not working as well as normal. Right upper arm is slightly weaker than normal. History is difficult to obtain between the and . Documentation from [facility] states patient is full code. Patient and both deny this. Patient does not want chest compressions or intubation. Serum hematology shows no leukocytosis. Serum chemistry shows unremarkable left joints. No elevation in lactic acid. Normal renal function. Patient continues to be slightly altered per patient's . We attempted over the course of several hours to obtain urine specimen from the patient. Bedside ultrasound showed a bladder volume of 75 mL. At baseline, patient is incontinent of urine. We will attempt by staff of both a straight catheter as well as placement were unsuccessful in obtaining a urine specimen. Explanation is that patient has vaginal cystocele. Although patient's workup thus far has been unremarkable and does not explain her mentation, or workup is incomplete due to unavailability of urine specimen. At this time, will admit patient hospitalist for empiric management of supposed UTI. We will provide empiric ceftriaxone for her UTI. Vital Signs Temperature 98.4 F 04/09/18 12:56 Pulse Rate 73 04/09/18 12:56 Respiratory Rate 14 04/09/18 12:56 Blood Pressure 96/72 04/09/18 12:56 O2 Sat by Pulse Oximetry 100 04/09/18 12:56 Temperature 98.4 F 04/09/18 12:56 Pulse Rate 77 04/09/18 18:18 Respiratory Rate 20 04/09/18 18:18 Blood Pressure 96/46 04/09/18 18:18 O2 Sat by Pulse Oximetry 95 04/09/18 18:18 Oxygen Delivery Oxygen Delivery Nasal Cannula Altered Mental Status - Lab Data Result diagrams: 04/09/18 13:26 04/09/18 13:26 Lab Results 04/09/18 04/09/18 04/09/18 Range/Units 13:26 13:26 13:26 WBC 7.1 (4.3-11.1) K/mcL RBC 4.63 (3.82-4.97) M/mcL Hgb 13.7 (11.5-15.4) g/dL Hct 42.9 (35.3-44.9) % MCV 92.7 (83.0-100.0) fL MCH 29.6 (28.0-33.3) pg MCHC 31.9 (31.6-35.5) g/dL RDW 14.4 (11.5-14.5) % Plt Count 144 (140-400) K/mcL MPV 11.2 (9.4-12.4) fL Immature Gran % 0.1 (0-4) % Seg Neutrophils % 60.0 % Lymphocytes % 27.2 % Monocytes % 9.1 % Eosinophils % 3.2 % Basophils % 0.4 % Neutrophils # 4.3 (1.6-8.9) K/mcL Lymphocytes # 1.9 (0.6-4.6) K/mcL Monocytes # 0.7 (0.0-1.3) K/mcL Eosinophils # 0.2 (0.0-0.6) K/mcL Basophils # 0.0 (0.0-0.2) K/mcL Sodium 139 (136-145) mEq/L Potassium 3.9 (3.5-5.1) mEq/L Chloride 104 (98-107) mEq/L Carbon Dioxide 30 H (23-29) mEq/L BUN 17 (8-23) mg/dL Creatinine 0.60 (0.60-1.20) mg/dL Est GFR ( Amer) > 60 (> 60) Est GFR (Non-Af Amer) > 60 (> 60) BUN/Creatinine Ratio 28 H (6-26) Glucose 107 H (70-105) mg/dL Calculated Osmolality 290 (280-300) Lactic Acid 1.0 (0.5-2.2) mmol/L Calcium 9.3 (8.6-10.3) mg/dL Magnesium 1.9 (1.6-2.6) mg/dL Total Bilirubin 0.4 (0.3-1.0) mg/dL Direct Bilirubin 0.0 (0.0-0.2) mg/dL Indirect Bilirubin 0.4 (0.0-1.2) mg/dL AST 16 (13-39) Units/L ALT 6 L (7-52) Units/L Alkaline Phosphatase 87 (34-104) Units/L Troponin I < 0.03 (< 0.04) ng/mL Serum Total Protein 6.4 (6.4-8.9) g/dL Albumin 3.6 (3.5-5.7) g/dL Globulin 2.8 (2.4-3.5) g/dL Albumin/Globulin Ratio 1.3 (1.1-2.2) TPA Checklist - LKW: 3-4.5 hrs Add. Warnings/Precautions Patient/family understanding: The patient/family members have been counseled and understood the risk, benefit , and alternatives of treatment.
[2018-04-09 13:46] LABS: Basophils % 0.4 %; Eosinophils # 0.2 K/mcL (0.0-0.6); Eosinophils % 3.2 %; Hematocrit 42.9 % (35.3-44.9); Hemoglobin 13.7 g/dL (11.5-15.4); Immature Granulocytes % 0.1 % (0-4); Lymphocytes # 1.9 K/mcL (0.6-4.6); Lymphocytes % 27.2 %; Mean Corpuscular HGB Conc 31.9 g/dL (31.6-35.5); Mean Corpuscular Hemoglobin 29.6 pg (28.0-33.3); Mean Corpuscular Volume 92.7 fL (83.0-100.0); Mean Platelet Volume 11.2 fL (9.4-12.4); Monocytes # 0.7 K/mcL (0.0-1.3); Monocytes % 9.1 %; Neutrophils # 4.3 K/mcL (1.6-8.9); Platelet Count 144 K/mcL (140-400); Red Blood Count 4.63 M/mcL (3.82-4.97); Red Cell Distribution Width 14.4 % (11.5-14.5)
[2018-04-09 13:58] LABS: Troponin I < 0.03 ng/mL (< 0.04)
[2018-04-09 14:00] LABS: Alanine Aminotransferase 6 Units/L (7-52); Albumin 3.6 g/dL (3.5-5.7); Albumin/Globulin Ratio 1.3 (1.1-2.2); Alkaline Phosphatase 87 Units/L (34-104); Aspartate Amino Transferase 16 Units/L (13-39); BUN/Creatinine Ratio 28 (6-26); Bilirubin,Indirect 0.4 mg/dL (0.0-1.2); Bilirubin,Total 0.4 mg/dL (0.3-1.0); Blood Urea Nitrogen 17 mg/dL (8-23); Calcium 9.3 mg/dL (8.6-10.3); Carbon Dioxide 30 mEq/L (23-29); Chloride 104 mEq/L (98-107); Globulin 2.8 g/dL (2.4-3.5); Glucose 107 mg/dL (70-105); Magnesium 1.9 mg/dL (1.6-2.6); Osmolality,Calculated 290 (280-300); Potassium 3.9 mEq/L (3.5-5.1); Sodium 139 mEq/L (136-145); Total Protein 6.4 g/dL (6.4-8.9); eGFR For Non-African Americans > 60 (> 60)
--- NOTE | 2018-04-09 15:15 | Emergency Department Note ---
Disposition Clinical Impression: Weakness, H/O TIA (transient ischemic attack) and stroke Disposition: Still a Patient Referrals: NONE,PCP [Primary Care Provider] - Forms: ED Satisfaction Letter General Adult HPI - General Chief complaint: ED Altered Mental Status Stated complaint: AMS Time Seen by Provider: 04/09/18 13:04 Source: EMS Limitations: no limitations, altered mental status - History of Present Illness Pain Scale: 0 - Related Data Home Medications Medication Instructions Recorded Confirmed Albuterol Sulfate [Proair 1 puff IH Q6H PRN 09/26/15 12/01/17 Respiclick] Bisacodyl [Dulcolax] 10 mg RC DAILY PRN 09/26/15 12/01/17 Carvedilol 3.125 mg PO Q12H 09/26/15 12/01/17 Donepezil [Aricept] 5 mg PO HS 09/26/15 12/01/17 Levothyroxine [Synthroid] 175 mcg PO 0600 09/26/15 12/01/17 Lisinopril 2.5 mg PO QAM 09/26/15 12/01/17 Polyethylene Glycol 3350 [MiraLAX] 17 gm PO HS 09/26/15 12/01/17 Sennosides [Senna] 8.6 mg PO BID PRN 09/26/15 12/01/17 rOPINIRole [Requip] 1 mg PO HS 09/26/15 12/01/17 GuaiFENesin/Dextromethorphan 10 ml PO Q4H PRN 04/21/16 12/01/17 [Robitussin/Dm] Ondansetron HCl [Zofran] 4 mg PO Q4H PRN 04/21/16 12/01/17 Cyanocobalamin (Vitamin B-12) 1,000 mcg PO DAILY 06/02/16 12/01/17 [Vitamin B12] Ipratropium/Albuterol Neb [Duoneb] 3 ml IH Q4H PRN 06/02/16 12/01/17 Oxygen 3 l NS AD 06/02/16 12/01/17 Acetaminophen [Tylenol] 500 mg PO Q6HR PRN 11/12/17 12/01/17 Albuterol Neb [Proventil Neb] 2.5 mg IH Q4HR 11/12/17 12/01/17 Budesonide/Formoterol 160/4.5 1 puff IH BIDR 11/12/17 12/01/17 [Symbicort 160/4.5] Buspirone HCl [Buspar] 10 mg PO BID 11/12/17 12/01/17 MOM Conc [MILK OF MAGNESIA conc] 30 ml PO DAILY PRN 11/12/17 12/01/17 Melatonin/Pyridoxine HCl (B6) 1 tab PO HS PRN 11/12/17 12/01/17 [Melatonin 5 mg Tablet] Nitroglycerin [Nitrostat] 0.4 mg SL Q5M PRN 11/12/17 12/01/17 Promethazine HCl 12.5 mg PO Q6H PRN 11/12/17 12/01/17 Gabapentin [Neurontin] 800 mg PO TID 12/01/17 12/01/17 Linaclotide [Linzess] 290 mcg PO DAILY 12/01/17 12/01/17 Mirtazapine [Remeron] 15 mg PO HS 12/01/17 12/01/17 Omeprazole [PriLOSEC] 40 mg PO DAILY 12/01/17 12/01/17 Aspirin 81 mg PO DAILY 12/02/17 12/02/17 Carbidopa/Levodopa 1 tab PO BID 12/02/17 12/02/17 [Carbidopa-Levodopa 25-100 Tab] Previous Rx's Medication Instructions Recorded Cholecalciferol (D-3) [Vitamin D] 1,000 unit PO QAM tablet 04/24/16 Ferrous Sulfate 325 mg PO TIDWM tablet 04/24/16 Folic Acid 1 mg PO DAILY tablet 04/24/16 ALPRAZolam [Xanax 0.5 MG Tablet] 0.5 mg PO BID #20 tablet 06/02/16 Docusate [Colace] 100 mg PO BID udc 12/03/17 Glucagon HCl 1 mg IJ PRN PRN #5 vial 12/04/17 OxyCODONE Immed Rel [Roxicodone 10 10 mg PO QID PRN 7 Days #9 tablet 12/04/17 MG] Allergies Allergy/AdvReac Type Severity Reaction Status Date / Time Erythromycin Base Allergy Unknown See Verified 04/21/16 14:16 Comments morphine Allergy Unknown See Verified 04/21/16 14:16 Comments Sulfa (Sulfonamide AdvReac Unknown Nausea Verified 04/21/16 14:16 Antibiotics) Past Medical History - Past Medical History Medical history: Reports: arthritis, atrial fibrillation, CHF, COPD, CVA, DVT, dementia, GERD, hypertension, pulmonary embolus, thyroid disease, TIA, other Surgical history: Reports: appendectomy, cholecystectomy, colectomy, hysterectomy, knee replacement, orthopedic, other Psychiatric history: Reports: anxiety, depression 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 - Social History Smoking Status: Unknown if ever smoked Smokeless Tobacco Status: No Alcohol use: Reports: none Drug use: Reports: none Physical Exam - General Limitations: no limitations, altered mental status General appearance: alert, in no apparent distress Course Vital Signs Temperature 98.4 F 04/09/18 12:56 Pulse Rate 73 04/09/18 12:56 Respiratory Rate 14 04/09/18 12:56 Blood Pressure 96/72 04/09/18 12:56 O2 Sat by Pulse Oximetry 100 04/09/18 12:56 Temperature 98.4 F 04/09/18 12:56 Pulse Rate 73 04/09/18 12:56 Respiratory Rate 14 04/09/18 12:56 Blood Pressure 96/72 04/09/18 12:56 O2 Sat by Pulse Oximetry 98 04/09/18 13:03 Oxygen Delivery Oxygen Delivery Nasal Cannula Medical Decision Making - Lab Data Result diagrams: 04/09/18 13:26 04/09/18 13:26 Lab Results 04/09/18 04/09/18 04/09/18 Range/Units 13:26 13:26 13:26 WBC 7.1 (4.3-11.1) K/mcL RBC 4.63 (3.82-4.97) M/mcL Hgb 13.7 (11.5-15.4) g/dL Hct 42.9 (35.3-44.9) % MCV 92.7 (83.0-100.0) fL MCH 29.6 (28.0-33.3) pg MCHC 31.9 (31.6-35.5) g/dL RDW 14.4 (11.5-14.5) % Plt Count 144 (140-400) K/mcL MPV 11.2 (9.4-12.4) fL Immature Gran % 0.1 (0-4) % Seg Neutrophils % 60.0 % Lymphocytes % 27.2 % Monocytes % 9.1 % Eosinophils % 3.2 % Basophils % 0.4 % Neutrophils # 4.3 (1.6-8.9) K/mcL Lymphocytes # 1.9 (0.6-4.6) K/mcL Monocytes # 0.7 (0.0-1.3) K/mcL Eosinophils # 0.2 (0.0-0.6) K/mcL Basophils # 0.0 (0.0-0.2) K/mcL Sodium 139 (136-145) mEq/L Potassium 3.9 (3.5-5.1) mEq/L Chloride 104 (98-107) mEq/L Carbon Dioxide 30 H (23-29) mEq/L BUN 17 (8-23) mg/dL Creatinine 0.60 (0.60-1.20) mg/dL Est GFR ( Amer) > 60 (> 60) Est GFR (Non-Af Amer) > 60 (> 60) BUN/Creatinine Ratio 28 H (6-26) Glucose 107 H (70-105) mg/dL Calculated Osmolality 290 (280-300) Lactic Acid 1.0 (0.5-2.2) mmol/L Calcium 9.3 (8.6-10.3) mg/dL Magnesium 1.9 (1.6-2.6) mg/dL Total Bilirubin 0.4 (0.3-1.0) mg/dL Direct Bilirubin 0.0 (0.0-0.2) mg/dL Indirect Bilirubin 0.4 (0.0-1.2) mg/dL AST 16 (13-39) Units/L ALT 6 L (7-52) Units/L Alkaline Phosphatase 87 (34-104) Units/L Troponin I < 0.03 (< 0.04) ng/mL Serum Total Protein 6.4 (6.4-8.9) g/dL Albumin 3.6 (3.5-5.7) g/dL Globulin 2.8 (2.4-3.5) g/dL Albumin/Globulin Ratio 1.3 (1.1-2.2) Attestation Statement - Attestation Attestation: I examined this patient and my medical decision-making was reviewed with the Resident Physician. I agree with the documented findings, disposition and treatment plan as described except to the extent set forth below. 77-year-old female was brought in for nursing facility for lethargy and decreased responsiveness. Onset around 8 AM. She has a history of a CVA which affected her left side. They noticed some right upper extremity weakness today as well as a decreased ability and responsiveness. They were concerned for another stroke and sent her to the ER. As far workup is unremarkable. CT negative for any acute CVA. Lab work unremarkable. Awaiting a urinalysis. Patient disposition is pending. She potentially go back to the nursing facility.
[2018-04-09] MEDS ORDERED: cefTRIAXone 2,000 MG in 0.9 % Sodium Chloride Mini Bag 100 ML IVPB ONE (18:55)
[2018-04-10] MEDS ORDERED: Acetaminophen 325 MG TABLET PO PRN (02:08)
[2018-04-10] MEDS ORDERED: Naloxone 0.4 MG/ML INJ IVP PRN (02:08)
[2018-04-10] MEDS ORDERED: Bisacodyl 10 MG RECTAL SUPPOSITORY RC PRN (02:13)
[2018-04-10] MEDS ORDERED: Nitroglycerin 0.4 MG TAB.SUBL SL PRN (02:13)
[2018-04-10] MEDS ORDERED: Sennosides 8.6 MG TABLET PO PRN (02:13)
[2018-04-10] MEDS ORDERED: 0.9 % Sodium Chloride w KCl 20 MEQ/1,000 ML MLS IVC SCH (02:15)
--- NOTE | 2018-04-10 03:22 | Internal Med History&Physical ---
Date of Encounter: 04/10/18 Time of Encounter: 02:00 Internal Medicine - H&P: HPI Chief complaint: altered mental status Admitted From: Emergency Dept Plans for Post Hospital Care: Home History of present illness: Ms. Gibbons is a 77 year old female who presents to the ER today with concerns of altered mental status. Patient is a half-way resident who was noted by nursing staff to be more somnolent, have increased weakness, and be more confused beyond her baseline. She was sent to the ER for evaluation. In the ER , she was seen in the ER and presumed to have UTI. However, urine sample was not collected. They attempted to obtain urine sample by straight catheterization. Urine was not able to be collected and she suffered a traumatic catheterization which resulted in some hematuria. She received a dose of Rocephin and was admitted to hospitalist service. Upon my assessment of the patient, she is sleeping but arousable. Family is not present to confirm baseline state. She does communicate and her language and speech are understandable, even though her speech is somewhat slurred. According to her nurse, this is about her baseline speech. She is unable to provide much history, however. Regarding the hematuria after straight catheterization, I asked the nurse not to perform any further attempts at urine catheterization. I will consult urology to see him in the morning and place Dey if necessary. No further information could be obtained. Past Med Surg Social Fam HX - Past Medical History Attestation: Yes The following information was validated with the patient. Source: patient, old records reviewed Medical history: arthritis, atrial fibrillation, CHF, COPD, CVA, DVT, dementia, GERD, hypertension, pulmonary embolus, thyroid disease, TIA Additional medical history: L sided CVA Psychiatric history: anxiety, depression - Past Surgical History Surgical History: appendectomy, cholecystectomy, colectomy, hysterectomy, knee replacement, orthopedic, other Additional surgical history: colon resection - Social History Smoking Status: Unknown if ever smoked Smokeless Tobacco Status: No Alcohol use: none Drug use: none Current living situation: ECF Activity Level: Mostly sedentary Recent Out of Country Travel Within the Last 8 Weeks: No - Family History Father Living Status: Hx Family Respiratory Disorders: Yes Hx Family Cancer: Yes (Lung CA) Internal Medicine - H&P: Meds Albuterol Sulfate [Proair Respiclick] 1 puff IH Q6H PRN 09/26/15 [History] Bisacodyl [Dulcolax] 10 mg RC DAILY PRN 09/26/15 [History] Carvedilol 3.125 mg PO Q12H 09/26/15 [History] Donepezil [Aricept] 5 mg PO HS 09/26/15 [History] Levothyroxine [Synthroid] 175 mcg PO 0600 09/26/15 [History] Lisinopril 2.5 mg PO QAM 09/26/15 [History] Polyethylene Glycol 3350 [MiraLAX] 17 gm PO HS 09/26/15 [History] Sennosides [Senna] 8.6 mg PO BID PRN 09/26/15 [History] rOPINIRole [Requip] 1 mg PO HS 09/26/15 [History] GuaiFENesin/Dextromethorphan [Robitussin/Dm] 10 ml PO Q4H PRN 04/21/16 [History] Ondansetron HCl [Zofran] 4 mg PO Q4H PRN 04/21/16 [History] Cholecalciferol (D-3) [Vitamin D] 1,000 unit PO QAM tablet 04/24/16 [Rx] Ferrous Sulfate 325 mg PO TIDWM tablet 04/24/16 [Rx] Folic Acid 1 mg PO DAILY tablet 04/24/16 [Rx] ALPRAZolam [Xanax 0.5 MG Tablet] 0.5 mg PO BID #20 tablet 06/02/16 [Rx] Cyanocobalamin (Vitamin B-12) [Vitamin B12] 1,000 mcg PO DAILY 06/02/16 [History ] Oxygen 3 l NS AD 06/02/16 [History] Acetaminophen [Tylenol] 500 mg PO Q6HR PRN 11/12/17 [History] Albuterol Neb [Proventil Neb] 2.5 mg IH Q4HR 11/12/17 [History] Budesonide/Formoterol 160/4.5 [Symbicort 160/4.5] 1 puff IH BIDR 11/12/17 [ History] Buspirone HCl [Buspar] 10 mg PO BID 11/12/17 [History] MOM Conc [MILK OF MAGNESIA conc] 30 ml PO DAILY PRN 11/12/17 [History] Melatonin/Pyridoxine HCl (B6) [Melatonin 5 mg Tablet] 1 tab PO HS PRN 11/12/17 [ History] Nitroglycerin [Nitrostat] 0.4 mg SL Q5M PRN 11/12/17 [History] Promethazine HCl 12.5 mg PO Q6H PRN 11/12/17 [History] Gabapentin [Neurontin] 800 mg PO TID 12/01/17 [History] Linaclotide [Linzess] 290 mcg PO DAILY 12/01/17 [History] Mirtazapine [Remeron] 15 mg PO HS 12/01/17 [History] Omeprazole [PriLOSEC] 40 mg PO DAILY 12/01/17 [History] Aspirin 81 mg PO DAILY 12/02/17 [History] Carbidopa/Levodopa [Carbidopa-Levodopa 25-100 Tab] 1 tab PO BID 12/02/17 [ History] Docusate [Colace] 100 mg PO BID udc 12/03/17 [Rx] Glucagon HCl 1 mg IJ PRN PRN #5 vial 12/04/17 [Rx] OxyCODONE Immed Rel [Roxicodone 10 MG] 10 mg PO QID PRN 7 Days #9 tablet [Rx] Oxycodone HCl [Oxycodone HCl] 15 mg PO HS 04/09/18 [History] 3 Allergy/AdvReac Type Severity Reaction Status Date / Time Erythromycin Base Allergy Unknown See Verified 04/09/18 18:21 Comments morphine Allergy Unknown See Verified 04/09/18 18:21 Comments Sulfa (Sulfonamide AdvReac Unknown Nausea Verified 04/09/18 18:21 Antibiotics) ROS unobtainable: due to mental status - Constitutional Vitals: Temp Pulse Resp BP Pulse Ox 97.9 F 74 18 103/68 97 04/09/18 22:39 04/09/18 22:39 04/09/18 22:39 04/09/18 22:39 04/09/18 22:39 General appearance: Present: cooperative, A&O X 1, no acute distress Exam: see below - Head Head exam: Present: normal inspection - Eye Eye exam: Present: EOMI, PERRL. Absent: scleral icterus - ENT ENT exam: Present: mucous membranes dry, normal oropharynx - Neck Neck exam general surgery: Present: full ROM, supple. Absent: tenderness, thyromegaly - Respiratory Respiratory exam: Present: CTAB. Absent: chest wall tenderness, rales, rhonchi , wheezes - Cardiovascular Cardiovascular exam: Present: RRR, +S1, +S2. Absent: systolic murmur - GI/Abdominal GI/Abdominal exam: Present: normal bowel sounds, soft. Absent: hepatomegaly, splenomegaly, tenderness - Extremities Exam Extremities exam: Present: warm, radial pulses palpable and symmetrical. Absent : calf tenderness, joint swelling - Neurological Exam Neurological exam: Present: alert, facial droop (rgith sided -- old). Absent: oriented X3 - Psychiatric Psychiatric exam: Present: flat affect - Skin Skin exam: Present: dry, intact, warm Internal Med - H&P Results - Labs CBC & Chem 7: 04/09/18 13:26 04/09/18 13:26 - Diagnostic Studies Chest x-ray Status: image reviewed by me (negative) - Assessment and plan (1) Acute encephalopathy Current Visit: Yes Status: Acute Assessment and plan: 1. According to my discussions with her nurse, patient may be at baseline but I 'm unable to confirm with family as no members are present. 2. Hold sedating meds tonight. 3. Reassess tomorrow with family members when present. 4. Continue Rocephin for presumptive UTI for now. (2) Weakness Current Visit: Yes Status: Acute Assessment and plan: 1. Reassess tomorrow with family to gauge baseline state. 2. Gingerly hydrate and monitor clinically. (3) History of CVA with residual deficit Current Visit: Yes Status: Chronic Assessment and plan: 1. Based upon history and nursing report, her current deficits and weakness are from old stroke. 2. Continue home meds as appropriate. 3. Pursue PT/O/ST consults if further deficits confirmed with family; however, based upon history, there was no report of any new focal deficits. (4) Hematuria Current Visit: Yes Status: Acute Assessment and plan: 1. Due to traumatic attempt at straight cath for urine collection. 2. Consult Urology to assess and place Dey if necessary. Qualifiers: Hematuria type: unspecified type Qualified Code(s): R31.9 - Hematuria, unspecified (5) DVT prophylaxis Current Visit: Yes Status: Acute Assessment and plan: 1. EPCD's.
[2018-04-10] MEDS: Albuterol 2.5 MG/3 ML NEBULIZER IH SCH ×6 (04:24→23:45)
[2018-04-10 05:46] LABS: Basophils % 0.7 %; Eosinophils # 0.2 K/mcL (0.0-0.6); Eosinophils % 3.1 %; Hematocrit 38.1 % (35.3-44.9); Hemoglobin 12.4 g/dL (11.5-15.4); Immature Granulocytes % 0.2 % (0-4); Lymphocytes # 1.3 K/mcL (0.6-4.6); Lymphocytes % 23.7 %; Mean Corpuscular HGB Conc 32.5 g/dL (31.6-35.5); Mean Corpuscular Hemoglobin 28.9 pg (28.0-33.3); Mean Corpuscular Volume 88.8 fL (83.0-100.0); Mean Platelet Volume 11.1 fL (9.4-12.4); Monocytes # 0.5 K/mcL (0.0-1.3); Monocytes % 9.3 %; Neutrophils # 3.5 K/mcL (1.6-8.9); Platelet Count 135 K/mcL (140-400); Red Blood Count 4.29 M/mcL (3.82-4.97); Red Cell Distribution Width 14.3 % (11.5-14.5)
[2018-04-10 05:50] LABS: Prothrombin Time 10.9 Seconds (9.4-12.1)
[2018-04-10 05:53] LABS: Activated Partial Thrombo Time 30.9 Seconds (26.0-36.0)
[2018-04-10] MEDS: *HR* OxyCODONE Immed Rel 5 MG TABLET PO PRN (05:59)
[2018-04-10 06:05] LABS: Alanine Aminotransferase 12 Units/L (7-52); Albumin 3.3 g/dL (3.5-5.7); Albumin/Globulin Ratio 1.2 (1.1-2.2); Alkaline Phosphatase 83 Units/L (34-104); Aspartate Amino Transferase 15 Units/L (13-39); BUN/Creatinine Ratio 30 (6-26); Bilirubin,Total 0.4 mg/dL (0.3-1.0); Blood Urea Nitrogen 12 mg/dL (8-23); Calcium 9.3 mg/dL (8.6-10.3); Carbon Dioxide 32 mEq/L (23-29); Chloride 104 mEq/L (98-107); Globulin 2.7 g/dL (2.4-3.5); Glucose 94 mg/dL (70-105); Magnesium 1.8 mg/dL (1.6-2.6); Osmolality,Calculated 292 (280-300); Potassium 3.6 mEq/L (3.5-5.1); Sodium 141 mEq/L (136-145); eGFR For Non-African Americans > 60 (> 60)
[2018-04-10] MEDS: Budesonide/Formoterol 160/4.5 1 PUFF INH IH SCH ×2 (07:49→19:59)
--- NOTE | 2018-04-10 09:27 | Urology - Consult Note ---
Date of Encounter: 04/10/18 Time of Encounter: 09:25 - Assessment and Plan (1) UTI (urinary tract infection) Current Visit: No Status: Acute Assessment and plan: 77-year-old woman with concern for altered mental status and urinary tract infection. I was able to place a 16-Bhutanese Dey catheter. I will leave the catheter indwelling and the primary team can determine when to remove it. Please call with any questions. Qualifiers: Urinary tract infection type: acute cystitis Hematuria presence: without hematuria Qualified Code(s): N30.00 - Acute cystitis without hematuria Urology CN:HPI Consult date: 04/10/18 Reason for consult Urology: Other (possible uti) Requesting physician: Daryl Welch History of present illness: 77-year-old woman was admitted to the hospital for altered mental status. She resides in a [facility]. History is difficult to obtain secondary to stroke. An attempt was made to place a catheter in the emergency room, but they were not successful and she had some vaginal trauma associated with it. She was admitted and placed on IV antibiotic. Most of the history is obtained from the chart. She has not had any fevers overnight. She did answer questions, but it was difficult to understand her speech. I was able to place a 16-Bhutanese Dey catheter. Past Med Surg Social Fam HX - Past Medical History Medical history: arthritis, atrial fibrillation, CHF, COPD, CVA, DVT, dementia, GERD, hypertension, pulmonary embolus, thyroid disease, TIA Additional medical history: L sided CVA Psychiatric history: anxiety, depression - Past Surgical History Surgical History: appendectomy, cholecystectomy, colectomy, hysterectomy, knee replacement, orthopedic, other Additional surgical history: colon resection - Social History Smoking Status: Unknown if ever smoked Smokeless Tobacco Status: No Alcohol use: none Drug use: none - Family History Father Living Status: Hx Family Respiratory Disorders: Yes Hx Family Cancer: Yes (Lung CA) Medications and Allergies Albuterol Sulfate [Proair Respiclick] 1 puff IH Q6H PRN 09/26/15 [History] Bisacodyl [Dulcolax] 10 mg RC DAILY PRN 09/26/15 [History] Carvedilol 3.125 mg PO Q12H 09/26/15 [History] Donepezil [Aricept] 5 mg PO HS 09/26/15 [History] Levothyroxine [Synthroid] 175 mcg PO 0600 09/26/15 [History] Lisinopril 2.5 mg PO QAM 09/26/15 [History] Polyethylene Glycol 3350 [MiraLAX] 17 gm PO HS 09/26/15 [History] Sennosides [Senna] 8.6 mg PO BID PRN 09/26/15 [History] rOPINIRole [Requip] 1 mg PO HS 09/26/15 [History] GuaiFENesin/Dextromethorphan [Robitussin/Dm] 10 ml PO Q4H PRN 04/21/16 [History] Ondansetron HCl [Zofran] 4 mg PO Q4H PRN 04/21/16 [History] Cholecalciferol (D-3) [Vitamin D] 1,000 unit PO QAM tablet 04/24/16 [Rx] Ferrous Sulfate 325 mg PO TIDWM tablet 04/24/16 [Rx] Folic Acid 1 mg PO DAILY tablet 04/24/16 [Rx] ALPRAZolam [Xanax 0.5 MG Tablet] 0.5 mg PO BID #20 tablet 06/02/16 [Rx] Cyanocobalamin (Vitamin B-12) [Vitamin B12] 1,000 mcg PO DAILY 06/02/16 [History ] Oxygen 3 l NS AD 06/02/16 [History] Acetaminophen [Tylenol] 500 mg PO Q6HR PRN 11/12/17 [History] Albuterol Neb [Proventil Neb] 2.5 mg IH Q4HR 11/12/17 [History] Budesonide/Formoterol 160/4.5 [Symbicort 160/4.5] 1 puff IH BIDR 11/12/17 [ History] Buspirone HCl [Buspar] 10 mg PO BID 11/12/17 [History] MOM Conc [MILK OF MAGNESIA conc] 30 ml PO DAILY PRN 11/12/17 [History] Melatonin/Pyridoxine HCl (B6) [Melatonin 5 mg Tablet] 1 tab PO HS PRN 11/12/17 [ History] Nitroglycerin [Nitrostat] 0.4 mg SL Q5M PRN 11/12/17 [History] Promethazine HCl 12.5 mg PO Q6H PRN 11/12/17 [History] Gabapentin [Neurontin] 800 mg PO TID 12/01/17 [History] Linaclotide [Linzess] 290 mcg PO DAILY 12/01/17 [History] Mirtazapine [Remeron] 15 mg PO HS 12/01/17 [History] Omeprazole [PriLOSEC] 40 mg PO DAILY 12/01/17 [History] Aspirin 81 mg PO DAILY 12/02/17 [History] Carbidopa/Levodopa [Carbidopa-Levodopa 25-100 Tab] 1 tab PO BID 12/02/17 [ History] Docusate [Colace] 100 mg PO BID udc 12/03/17 [Rx] Glucagon HCl 1 mg IJ PRN PRN #5 vial 12/04/17 [Rx] OxyCODONE Immed Rel [Roxicodone 10 MG] 10 mg PO QID PRN 7 Days #9 tablet [Rx] Oxycodone HCl [Oxycodone HCl] 15 mg PO HS 04/09/18 [History] 3 Allergy/AdvReac Type Severity Reaction Status Date / Time Erythromycin Base Allergy Unknown See Verified 04/09/18 18:21 Comments morphine Allergy Unknown See Verified 04/09/18 18:21 Comments Sulfa (Sulfonamide AdvReac Unknown Nausea Verified 04/09/18 18:21 Antibiotics) Review of Systems ROS unobtainable: due to mental status Exam Initial Vital Signs Temp Pulse Resp BP Pulse Ox 98.4 F 73 14 96/72 100 04/09/18 12:56 04/09/18 12:56 04/09/18 12:56 04/09/18 12:56 04/09/18 12:56 - General physical appearance Present: well developed, well nourished, no distress - Eyes Absent: icteric - ENT Present: normal nares - Neck Present: trachea midline - Respiratory Present: normal respiratory effort - Cardiovascular Cardiovascular exam IM: RRR - Abdomen Abdomen: Present: soft - Genitourinary Present: normal external genitalia - Integumentary Present: no rash - Neurologic Present: confused - Musculoskeletal Present: other (Lower extremities have limited range of motion) Urology Results - Labs 04/10/18 05:12 04/10/18 05:12 Abnormal lab results Plt Count 135 K/mcL (140-400) L 04/10/18 05:12 Carbon Dioxide 32 mEq/L (23-29) H 04/10/18 05:12 Creatinine 0.40 mg/dL (0.60-1.20) L 04/10/18 05:12 BUN/Creatinine Ratio 30 (6-26) H 04/10/18 05:12 Serum Total Protein 6.0 g/dL (6.4-8.9) L 04/10/18 05:12 Albumin 3.3 g/dL (3.5-5.7) L 04/10/18 05:12 Diabetes panel 04/10/18 Range/Units 05:12 Sodium 141 (136-145) mEq/L Potassium 3.6 (3.5-5.1) mEq/L Chloride 104 (98-107) mEq/L Carbon Dioxide 32 H (23-29) mEq/L BUN 12 (8-23) mg/dL Creatinine 0.40 L (0.60-1.20) mg/dL Glucose 94 (70-105) mg/dL Calcium 9.3 (8.6-10.3) mg/dL AST 15 (13-39) Units/L ALT 12 (7-52) Units/L Alkaline Phosphatase 83 (34-104) Units/L Albumin 3.3 L (3.5-5.7) g/dL Calcium panel 04/10/18 Range/Units 05:12 Calcium 9.3 (8.6-10.3) mg/dL Albumin 3.3 L (3.5-5.7) g/dL Pituitary panel 04/10/18 Range/Units 05:12 Sodium 141 (136-145) mEq/L Potassium 3.6 (3.5-5.1) mEq/L Chloride 104 (98-107) mEq/L Carbon Dioxide 32 H (23-29) mEq/L BUN 12 (8-23) mg/dL Creatinine 0.40 L (0.60-1.20) mg/dL Glucose 94 (70-105) mg/dL Calcium 9.3 (8.6-10.3) mg/dL Adrenal panel 04/10/18 Range/Units 05:12 Sodium 141 (136-145) mEq/L Potassium 3.6 (3.5-5.1) mEq/L Chloride 104 (98-107) mEq/L Carbon Dioxide 32 H (23-29) mEq/L BUN 12 (8-23) mg/dL Creatinine 0.40 L (0.60-1.20) mg/dL Glucose 94 (70-105) mg/dL Calcium 9.3 (8.6-10.3) mg/dL Total Bilirubin 0.4 (0.3-1.0) mg/dL AST 15 (13-39) Units/L ALT 12 (7-52) Units/L Alkaline Phosphatase 83 (34-104) Units/L Albumin 3.3 L (3.5-5.7) g/dL All other labs normal. Procedures:Urology - Catheter Insertion (Urinary) Additional comments: She was prepped and draped in the usual sterile fashion. With difficulty I was able to retract the labia and identify the urethral meatus. The urethra was retracted within the vagina. I placed a finger in the vagina and with some effort was able to guide a 16-[place] Dey catheter into her urethra. Clear urine returned. 10 mL was instilled into the balloon. Consult Discharge Plan - Plan Referrals: NONE,PCP [Primary Care Provider] -
[2018-04-10] MEDS: cefTRIAXone 1,000 MG in Water for inj. (sterile) 20 ML 10 ML IVP SCH (09:43)
[2018-04-10] MEDS: Docusate Oral Soln 100 MG/10 ML UDC PO SCH ×2 (09:43→19:37)
[2018-04-10] MEDS: Gabapentin 400 MG CAPSULE PO SCH ×3 (09:44→19:36)
[2018-04-10] MEDS: Carbidopa/Levodopa 25/100 TABLET PO SCH ×2 (09:45→19:36)
[2018-04-10] MEDS: Folic Acid 1 MG TABLET PO SCH (09:45)
[2018-04-10] MEDS: Aspirin 81 MG TAB.CHEW PO SCH (09:45)
[2018-04-10 11:19] LABS: Bilirubin,Urine Negative (Negative); Blood,Urine Large (Negative); Clarity,Urine Cloudy (Clear); Color,Urine Yellow (Yellow); Glucose,Urine (UA) Normal (Normal); Ketones,Urine Negative (Negative); Leukocyte Esterase,Urine Large (Negative); Nitrite,Urine Negative (Negative); PH,Urine 6.5 pH Units (5.0-8.0); Protein,Urine 30 mg/dL (Neg-Trace); Specific Gravity,Urine 1.022 (1.010-1.025); Urobilinogen,Urine Normal (Normal)
[2018-04-10 11:22] LABS: Bacteria,Urine None Seen per hpf (None-Few); Hyaline Casts,Urine None Seen per lpf (None-Few); RBC,Urine TNTC per hpf (0-3); Squamous Epithelial Cell,Urine Many per lpf (None-Few); WBC,Urine TNTC per hpf (0-3)
--- NOTE | 2018-04-10 16:39 | Event Note ---
Date of Encounter: 04/10/18 Time of Encounter: 12:30 77-year-old female with multiple medical problems, who [facility] a [facility], [facility] with reported altered mental status, although the exact nature is not clear. Seen and examined at bedside. Patient has baseline right-sided weakness, facial droop and slurred speech. Her at bedside reports that her main complaint has been constipation, which has been a chronic issue for her. Patient requests for Fleet enema. Chest- S1, S2 heard Lungs with clear breath sounds B/L Suspected UTI-urinalysis shows cloudy urine with large leukocyte esterase and blood, pyuria with no bacteria seen. She was also noted to have traumatic hematuria secondary to Dey catheter to attempt in the emergency room. Urine culture has not been sent, discussed with lab to process this. Continue empiric IV Rocephin. Hematuria-likely traumatic. Urology consult appreciated, patient currently has indwelling Dey catheter with clear urine. Continue to monitor. Constipation-acute on chronic. Continue laxatives and stool softeners. Will give Fleet enema at this time. Acute encephalopathy-likely metabolic. Currently resolved, at baseline mental status.
[2018-04-11] MEDS: Albuterol 2.5 MG/3 ML NEBULIZER IH SCH ×5 (03:37→20:45)
[2018-04-11] MEDS: *HR* OxyCODONE Immed Rel 5 MG TABLET PO PRN ×3 (03:55→17:57)
[2018-04-11 06:17] LABS: Basophils % 0.7 %; Eosinophils # 0.2 K/mcL (0.0-0.6); Eosinophils % 3.6 %; Hematocrit 37.8 % (35.3-44.9); Hemoglobin 12.2 g/dL (11.5-15.4); Immature Granulocytes % 0.2 % (0-4); Lymphocytes # 1.3 K/mcL (0.6-4.6); Mean Corpuscular HGB Conc 32.3 g/dL (31.6-35.5); Mean Corpuscular Hemoglobin 29.4 pg (28.0-33.3); Mean Corpuscular Volume 91.1 fL (83.0-100.0); Monocytes # 0.4 K/mcL (0.0-1.3); Neutrophils # 2.5 K/mcL (1.6-8.9); Platelet Count 138 K/mcL (140-400); Red Blood Count 4.15 M/mcL (3.82-4.97); Red Cell Distribution Width 14.3 % (11.5-14.5); Segmented Neutrophils % 56.5 %
[2018-04-11 06:35] LABS: BUN/Creatinine Ratio 35 (6-26); Blood Urea Nitrogen 16 mg/dL (8-23); Calcium 9.1 mg/dL (8.6-10.3); Carbon Dioxide 30 mEq/L (23-29); Chloride 107 mEq/L (98-107); Glucose 97 mg/dL (70-105); Osmolality,Calculated 295 (280-300); Potassium 3.5 mEq/L (3.5-5.1); Sodium 142 mEq/L (136-145); eGFR For Non-African Americans > 60 (> 60)
[2018-04-11] MEDS: Budesonide/Formoterol 160/4.5 1 PUFF INH IH SCH ×2 (07:43→20:46)
[2018-04-11] MEDS: Folic Acid 1 MG TABLET PO SCH (09:30)
[2018-04-11] MEDS: Docusate Oral Soln 100 MG/10 ML UDC PO SCH ×2 (09:30→21:02)
[2018-04-11] MEDS: Gabapentin 400 MG CAPSULE PO SCH ×3 (09:30→21:02)
[2018-04-11] MEDS: Aspirin 81 MG TAB.CHEW PO SCH (09:30)
[2018-04-11] MEDS: Carbidopa/Levodopa 25/100 TABLET PO SCH ×2 (09:30→21:02)
[2018-04-11] MEDS: cefTRIAXone 1,000 MG in Water for inj. (sterile) 20 ML 10 ML IVP SCH (09:30)
--- NOTE | 2018-04-11 14:46 | Internal Med Progress Note ---
Hospitalist Progress Note - Encounter Date of Encounter: 04/11/18 Time of Encounter: 11:20 - Subjective Interval History: Reports feeling well today. Reports some nausea after receiving Colace tablets. Had bowel movement yesterday after Fleet enema. no fever, chills, cough, abdominal pain. Plan of care discussed with at bedside. Patient reports that she does not wish to go back to her current prison, encouraged her to discuss with mental health social worker tomorrow. - Exam Vitals: Temp Pulse Resp BP Pulse Ox 98 F 87 17 103/55 95 04/11/18 12:15 04/11/18 12:15 04/11/18 12:15 04/11/18 12:15 04/11/18 12:15 Exam: General: Well-developed female lying comfortably in bed in no acute distress, facial droop+ Chest: Normal thoracic expansion. Normal breath sounds. Clear to auscultation anterolaterally B/L. Heart: Normal S1 & S2; rhythmic. No rubs or murmurs. Abdomen: Non-distended, soft and nontender, obese Extremities: No clubbing, cyanosis or edema. No calf tenderness. Normal distal pulses. Neurological: Awake, alert and oriented to person and place; right-sided weakness, facial droop and dysphasia; Psych: Affect appropriate. - Assessment and Plan (1) Acute encephalopathy Current Visit: Yes Status: Resolved Assessment and Plan: Probably metabolic encephalopathy due to UTI and constipation; currently at baseline mental status; (2) DVT prophylaxis Current Visit: Yes Status: Acute (3) History of CVA with residual deficit Current Visit: Yes Status: Chronic Assessment and Plan: Supportive care, fall precautions. (4) Hematuria Current Visit: Yes Status: Resolved Assessment and Plan: Traumatic due to indwelling Dey catheter insertion. Urology consult noted, received Dey catheter. Hematuria resolved at this time. (5) Constipation Current Visit: Yes Status: Chronic Assessment and Plan: acute on chronic. Continue laxatives and stool softeners. s/p Fleet enema, noted to have a large dark hard bowel movement. (6) UTI (urinary tract infection) Current Visit: Yes Status: Ruled-out Assessment and Plan: urinalysis shows cloudy urine with large leukocyte esterase and blood, pyuria with no bacteria seen. She was also noted to have traumatic hematuria secondary to Dey catheter to attempt in the emergency room. Urine culture negative; will discontinue IV Rocephin. (7) VTE (venous thromboembolism) Current Visit: Yes Status: Inactive (8) COPD (chronic obstructive pulmonary disease) Current Visit: Yes Status: Chronic (9) History of atrial fibrillation Current Visit: Yes Status: Chronic Assessment and Plan: Currently rate controlled. Continue beta justine and telemetry monitoring. Not noted to be on anticoagulation as an outpatient. (10) Hypothyroidism Current Visit: Yes Status: Chronic - Time Spent with Patient Total time spent is greater than 50% in coordination of care (as documented) at patient's floor/unit and/or counseling patient: Plan of Care Discussed with: family Internal Medicine: Result - Labs CBC & Chem 7: 04/11/18 05:56 04/11/18 05:56 Labs: Short CBC 04/11/18 Range/Units 05:56 WBC 4.4 (4.3-11.1) K/mcL Hgb 12.2 (11.5-15.4) g/dL Hct 37.8 (35.3-44.9) % Plt Count 138 L (140-400) K/mcL Neutrophils # 2.5 (1.6-8.9) K/mcL BMP 04/11/18 05:56 Sodium 142 Potassium 3.5 Chloride 107 Carbon Dioxide 30 H BUN 16 Creatinine 0.46 L Glucose 97 Calcium 9.1 - ABG Interpretation ABG results: PT/INR, D-dimer PT 10.9 Seconds (9.4-12.1) 04/10/18 05:12 - VTE Documentation of Mechanical Device: Intermittent pneumatic compression device Consult Discharge Plan - Plan Referrals: NONE,PCP [Primary Care Provider] - (4) Hematuria Qualifiers: Hematuria type: unspecified type Qualified Code(s): R31.9 - Hematuria, unspecified (5) Constipation Qualifiers: Constipation type: slow transit constipation Qualified Code(s): K59.01 - Slow transit constipation (6) UTI (urinary tract infection) Qualifiers: Urinary tract infection type: acute cystitis Hematuria presence: without hematuria Qualified Code(s): N30.00 - Acute cystitis without hematuria (8) COPD (chronic obstructive pulmonary disease) Qualifiers: COPD type: unspecified COPD Qualified Code(s): J44.9 - Chronic obstructive pulmonary disease, unspecified (10) Hypothyroidism Qualifiers: Hypothyroidism type: unspecified Qualified Code(s): E03.9 - Hypothyroidism, unspecified
[2018-04-11] MEDS ORDERED: Melatonin 3 MG TABLET PO PRN (23:08)
[2018-04-12] MEDS: Albuterol 2.5 MG/3 ML NEBULIZER IH SCH ×5 (00:14→15:35)
[2018-04-12] MEDS: *HR* OxyCODONE Immed Rel 5 MG TABLET PO PRN ×3 (00:22→12:33)
[2018-04-12] MEDS: Budesonide/Formoterol 160/4.5 1 PUFF INH IH SCH (07:30)
[2018-04-12] MEDS: Docusate Oral Soln 100 MG/10 ML UDC PO SCH (08:37)
[2018-04-12] MEDS: Carbidopa/Levodopa 25/100 TABLET PO SCH (08:41)
[2018-04-12] MEDS: Gabapentin 400 MG CAPSULE PO SCH (08:41)
[2018-04-12] MEDS: cefTRIAXone 1,000 MG in Water for inj. (sterile) 20 ML 10 ML IVP SCH (08:41)
[2018-04-12] MEDS: Folic Acid 1 MG TABLET PO SCH (08:41)
[2018-04-12] MEDS: Aspirin 81 MG TAB.CHEW PO SCH (08:42)
--- NOTE | 2018-04-12 10:51 | Discharge Summary ---
- NOTES TO OUTPATIENT PROVIDER Notes to Outpatient Provider: Suspected UTI, ruled out now; acute on chronic constipation, had a large BM with enema; needs aggressive bowel regimen and monitoring; Date of Encounter: 04/12/18 Time of Encounter: 10:49 - Discharge Diagnosis (1) Acute encephalopathy Priority: Primary Status: Resolved (2) History of CVA with residual deficit Priority: Secondary Status: Chronic (3) Hematuria Priority: Primary Status: Resolved Qualifiers: Hematuria type: unspecified type Qualified Code(s): R31.9 - Hematuria, unspecified (4) Constipation Priority: Primary Status: Chronic Qualifiers: Constipation type: slow transit constipation Qualified Code(s): K59.01 - Slow transit constipation (5) UTI (urinary tract infection) Priority: Primary Status: Ruled-out Qualifiers: Urinary tract infection type: acute cystitis Hematuria presence: without hematuria Qualified Code(s): N30.00 - Acute cystitis without hematuria (6) COPD (chronic obstructive pulmonary disease) Priority: Secondary Status: Chronic Qualifiers: COPD type: unspecified COPD Qualified Code(s): J44.9 - Chronic obstructive pulmonary disease, unspecified (7) History of atrial fibrillation Priority: Secondary Status: Chronic (8) Hypothyroidism Priority: Secondary Status: Chronic Qualifiers: Hypothyroidism type: unspecified Qualified Code(s): E03.9 - Hypothyroidism , unspecified Hospital course: Ms. Gibbons is a 77 year old female with the above medical problems, who was admitted with altered mental status per [facility] records. More detailed history was not available. She was started on empiric IV antibiotics for suspected UTI but urine culture eventually was negative for bacterial growth, antibiotics are being held. She had traumatic Dey insertion attempt in the ER with subsequent hematuria; Urology was consulted who placed a Dey and hematuria cleared up. She is also on narcotic pain meds and Gabapentin which may have caused altered sensorium prior to admission. She had acute on chronic issues with severe constipation; per her , this is her main complaint. She received Fleet enema and had a large hard bowel movement. SHe is noted to be on multiple stool softeners/laxatives including Linzess at the [facility]. She remained asymptomatic and hemodynamically stable while in the hospital. She is otherwise medically stable for discharge. Discharge discussed with: patient, family, nurse - Time Spent with Patient Total time spent providing and/or coordinating discharge services: Greater than 30 minutes (40 min) - Discharge Medications Prescriptions: Gabapentin [Neurontin] 800 mg PO TID 3 Days #10 tablet OxyCODONE Immed Rel [Roxicodone 10 MG] 10 mg PO Q8H PRN 7 Days #9 tablet PRN Reason: Severe Pain Wheat Dextrin [Benefiber] 1 each PO BID #60 powd.pack Home Medications: Albuterol Sulfate [Proair Respiclick] 1 puff IH Q6H PRN 09/26/15 [History] Bisacodyl [Dulcolax] 10 mg RC DAILY PRN 09/26/15 [History] Carvedilol 3.125 mg PO Q12H 09/26/15 [History] Donepezil [Aricept] 5 mg PO HS 09/26/15 [History] Levothyroxine [Synthroid] 175 mcg PO 0600 09/26/15 [History] Lisinopril 2.5 mg PO QAM 09/26/15 [History] Polyethylene Glycol 3350 [MiraLAX] 17 gm PO HS 09/26/15 [History] rOPINIRole [Requip] 1 mg PO HS 09/26/15 [History] GuaiFENesin/Dextromethorphan [Robitussin/Dm] 10 ml PO Q4H PRN 04/21/16 [History] Ondansetron HCl [Zofran] 4 mg PO Q4H PRN 04/21/16 [History] Cholecalciferol (D-3) [Vitamin D] 1,000 unit PO QAM tablet 04/24/16 [Rx] Ferrous Sulfate 325 mg PO TIDWM tablet 04/24/16 [Rx] Folic Acid 1 mg PO DAILY tablet 04/24/16 [Rx] Cyanocobalamin (Vitamin B-12) [Vitamin B12] 1,000 mcg PO DAILY 06/02/16 [History ] Oxygen 3 l NS AD 06/02/16 [History] Acetaminophen [Tylenol] 500 mg PO Q6HR PRN 11/12/17 [History] Albuterol Neb [Proventil Neb] 2.5 mg IH Q4HR 11/12/17 [History] Budesonide/Formoterol 160/4.5 [Symbicort 160/4.5] 1 puff IH BIDR 11/12/17 [ History] Buspirone HCl [Buspar] 10 mg PO BID 11/12/17 [History] MOM Conc [MILK OF MAGNESIA conc] 30 ml PO DAILY PRN 11/12/17 [History] Melatonin/Pyridoxine HCl (B6) [Melatonin 5 mg Tablet] 1 tab PO HS PRN 11/12/17 [ History] Nitroglycerin [Nitrostat] 0.4 mg SL Q5M PRN 11/12/17 [History] Promethazine HCl 12.5 mg PO Q6H PRN 11/12/17 [History] Linaclotide [Linzess] 290 mcg PO DAILY 12/01/17 [History] Mirtazapine [Remeron] 15 mg PO HS 12/01/17 [History] Omeprazole [PriLOSEC] 40 mg PO DAILY 12/01/17 [History] Aspirin 81 mg PO DAILY 12/02/17 [History] Carbidopa/Levodopa [Carbidopa-Levodopa 25-100 Tab] 1 tab PO BID 12/02/17 [ History] Docusate [Colace] 100 mg PO BID udc 12/03/17 [Rx] Glucagon HCl 1 mg IJ PRN PRN #5 vial 12/04/17 [Rx] Gabapentin [Neurontin] 800 mg PO TID 3 Days #10 tablet 04/12/18 [Rx] OxyCODONE Immed Rel [Roxicodone 10 MG] 10 mg PO Q8H PRN 7 Days #9 tablet [Rx] Sennosides [Senna] 8.6 mg PO BID #0 04/12/18 [Rx] Wheat Dextrin [Benefiber] 1 each PO BID #60 powd.pack 04/12/18 [Rx] Allergies/Adverse Reactions: 3 Allergy/AdvReac Type Severity Reaction Status Date / Time Erythromycin Base Allergy Unknown See Verified 04/09/18 18:21 Comments morphine Allergy Unknown See Verified 04/09/18 18:21 Comments Sulfa (Sulfonamide AdvReac Unknown Nausea Verified 04/09/18 18:21 Antibiotics) Date of admission: 04/09/18 21:25 Primary care physician: PCP NONE Consults: 04/09/18 22:50 Consult to Retail Sales Manager [CONS] Routine Reason for SW Consult: from [facility] 04/10/18 02:12 Consult to Physician [CONS] Routine Consulting Provider: Yousif De La Torre Reason for Consult: hematuria after traumatic Dey Call Completed: No 04/12/18 08:25 Consult to Occupational Therapy [CONS] Routine Comment: Evaluate, develop and implement POC Reason for Consult: WEAKNESS, HISTORY OF STROKE Does patient have active BEDREST order?: No Is patient medically & hemodynamically stable?: Yes Consult to Physical Therapy [CONS] Routine Comment: Evaluate, develop and implement POC Reason for Consult: WEAKNESS, HISTORY OF STROKE Does patient have active BEDREST order?: No Is patient medically & hemodynamically stable?: Yes Discharging clinician: Miranda Gonzalez Anticipated date of discharge: 04/12/18 - Constitutional Vitals: Temp Pulse Resp BP Pulse Ox 97.8 F 72 18 112/61 100 04/12/18 10:16 04/12/18 10:16 04/12/18 10:16 04/12/18 10:16 04/12/18 10:16 General appearance: Present: cooperative, A&O X 3, answers questions appropriately Exam: residual deficits with right-sided weakness, facial droop, dysphasia/garbled speech - Cardiovascular Cardiovascular exam: Present: RRR, +S1, +S2. Absent: diastolic murmur, gallop, rubs, systolic murmur - Patient Status Disposition: Transfer SNF Condition: Fair Functional capacity at discharge: bed bound Overall status at discharge: patient is progressing back to baseline - Discharge Instructions Follow Up With: NONE,PCP [Primary Care Provider] - Additional Instructions: F/up with PCP in 1-2 weeks - Diet and Activity Activity: as per physical therapy, wear oxygen at all times (1-2L/min PRN to keep O2 sat>90%) Diet: low fat, low cholesterol, low salt diet - VTE Documentation of Mechanical Device: Intermittent pneumatic compression device
--- NOTE | 2018-04-12 11:16 | Physician Discharge Referral ---
ExtendedCare Referral Info Transfer To: [facility] Provider in Charge: Miranda Gonzalez Provider in Charge after Transfer: PCP Institutional Level of Care: Skilled - Diagnosis (1) Acute encephalopathy Priority: Primary Status: Resolved (2) History of CVA with residual deficit Priority: Secondary Status: Chronic (3) Hematuria Priority: Primary Status: Resolved (4) Constipation Priority: Primary Status: Chronic (5) UTI (urinary tract infection) Priority: Primary Status: Ruled-out (6) COPD (chronic obstructive pulmonary disease) Priority: Secondary Status: Chronic (7) History of atrial fibrillation Priority: Secondary Status: Chronic (8) Hypothyroidism Priority: Secondary Status: Chronic Expected Duration of Placement: long term care administrator Prognosis: Fair Aware of Diagnosis: Patient, Family Aware of Prognosis: Patient, Family - Transfer Medications Prescriptions: Gabapentin [Neurontin] 800 mg PO TID 3 Days #10 tablet OxyCODONE Immed Rel [Roxicodone 10 MG] 10 mg PO Q8H PRN 7 Days #9 tablet PRN Reason: Severe Pain Wheat Dextrin [Benefiber] 1 each PO BID #60 powd.pack Home Medications: Albuterol Sulfate [Proair Respiclick] 1 puff IH Q6H PRN 09/26/15 [History] Bisacodyl [Dulcolax] 10 mg RC DAILY PRN 09/26/15 [History] Carvedilol 3.125 mg PO Q12H 09/26/15 [History] Donepezil [Aricept] 5 mg PO HS 09/26/15 [History] Levothyroxine [Synthroid] 175 mcg PO 0600 09/26/15 [History] Lisinopril 2.5 mg PO QAM 09/26/15 [History] Polyethylene Glycol 3350 [MiraLAX] 17 gm PO HS 09/26/15 [History] rOPINIRole [Requip] 1 mg PO HS 09/26/15 [History] GuaiFENesin/Dextromethorphan [Robitussin/Dm] 10 ml PO Q4H PRN 04/21/16 [History] Ondansetron HCl [Zofran] 4 mg PO Q4H PRN 04/21/16 [History] Cholecalciferol (D-3) [Vitamin D] 1,000 unit PO QAM tablet 04/24/16 [Rx] Ferrous Sulfate 325 mg PO TIDWM tablet 04/24/16 [Rx] Folic Acid 1 mg PO DAILY tablet 04/24/16 [Rx] Cyanocobalamin (Vitamin B-12) [Vitamin B12] 1,000 mcg PO DAILY 06/02/16 [History ] Oxygen 3 l NS AD 06/02/16 [History] Acetaminophen [Tylenol] 500 mg PO Q6HR PRN 11/12/17 [History] Albuterol Neb [Proventil Neb] 2.5 mg IH Q4HR 11/12/17 [History] Budesonide/Formoterol 160/4.5 [Symbicort 160/4.5] 1 puff IH BIDR 11/12/17 [ History] Buspirone HCl [Buspar] 10 mg PO BID 11/12/17 [History] MOM Conc [MILK OF MAGNESIA conc] 30 ml PO DAILY PRN 11/12/17 [History] Melatonin/Pyridoxine HCl (B6) [Melatonin 5 mg Tablet] 1 tab PO HS PRN 11/12/17 [ History] Nitroglycerin [Nitrostat] 0.4 mg SL Q5M PRN 11/12/17 [History] Promethazine HCl 12.5 mg PO Q6H PRN 11/12/17 [History] Linaclotide [Linzess] 290 mcg PO DAILY 12/01/17 [History] Mirtazapine [Remeron] 15 mg PO HS 12/01/17 [History] Omeprazole [PriLOSEC] 40 mg PO DAILY 12/01/17 [History] Aspirin 81 mg PO DAILY 12/02/17 [History] Carbidopa/Levodopa [Carbidopa-Levodopa 25-100 Tab] 1 tab PO BID 12/02/17 [ History] Docusate [Colace] 100 mg PO BID udc 12/03/17 [Rx] Glucagon HCl 1 mg IJ PRN PRN #5 vial 12/04/17 [Rx] Gabapentin [Neurontin] 800 mg PO TID 3 Days #10 tablet 04/12/18 [Rx] OxyCODONE Immed Rel [Roxicodone 10 MG] 10 mg PO Q8H PRN 7 Days #9 tablet [Rx] Sennosides [Senna] 8.6 mg PO BID #0 04/12/18 [Rx] Wheat Dextrin [Benefiber] 1 each PO BID #60 powd.pack 04/12/18 [Rx] Allergies/Adverse Reactions: 3 Allergy/AdvReac Type Severity Reaction Status Date / Time Erythromycin Base Allergy Unknown See Verified 04/09/18 18:21 Comments morphine Allergy Unknown See Verified 04/09/18 18:21 Comments Sulfa (Sulfonamide AdvReac Unknown Nausea Verified 04/09/18 18:21 Antibiotics) - Respiratory Orders Oxygen / L per min (2L/min via NC) Smoking Cessation: Smoking cessation has been advised. For more information, call the [place] Tobacco Quit Line at 1-900-CBOI-NOW. - Advance Directives Power of Manager Pharmaceutical: Yes Code Status: Full Code - Mobility Orders Ambulate - Rehabiliation Orders Rehab Potential: Fair Rehab Orders: ROM Exercises, Evaluation for Physical Therapy, Evaluation for Occupational Therapy - Treatments May check for fecal impaction rectally daily PRN, Fleet enema rectally every other day PRN cleansing purposes - Diet Orders Cardiac CERTIFICATION: I certify that the transfer of the above named patient to an Extended Care Facility is necessary for the continuing treatment of the diagnosis listed. The above information is true and accurate reflection of patient's current condition. Confidential - Redisclosure prohibited without a patient's written consent.
[2018-04-12 14:47] VITALS: BP 106/64
== END 2018-04-12 16:10 ==
LOC: EMEROOARM 12:52 → 3BNU 12:52 → SUATTDRO 21:25 → 3BNU 22:00
PROVIDERS: ADMIT Internal Medicine; ATTEND Internal Medicine